=== PATIENT | male | born 1990 | race Caucasian/White ===

== ENCOUNTER → 2018-01-14 09:50 | Outpatient (POV) | payer BC, SELFPAY | PROVIDERS: PCP Nurse Practitioner Family; Visit Provider Nurse Practitioner Acute Care | DX: Z00.00 Encounter for general adult medical examination without abnormal findings (principal) ==

== ENCOUNTER → 2019-03-03 12:27 | Outpatient (CLI) | payer BC, SELFPAY ==
--- NOTE | 2019-03-03 12:42 | XR_ITS ---
XR chest 2V HISTORY: ITS.REASON: CHEST PAIN, SOA, CHRONIC COUGH ORDERING PHYSICIAN: Dorothy Ivy APRN PATIENT AGE: 28 years COMPARISON: PA and lateral chest 12/22/2018 FINDINGS: The cardiomediastinal silhouette and pulmonary vascularity are within normal limits. The lungs are clear without infiltrates, suspicious nodules, or pleural effusions. No acute bony abnormalities. IMPRESSION: Negative chest, no acute finding
== END ==
PROVIDERS: PCP Family Medicine; Visit Provider Nurse Practitioner Family
DX: R07.9 Chest pain, unspecified (principal); R06.02 Shortness of breath; R05 Cough
CPT/HCPCS: 71046

== ENCOUNTER → 2019-03-04 16:12 | Outpatient (CLI) | payer BC, SELFPAY ==
[2019-03-04 16:44] LABS: Basophils # 0.1 K/mm3 (0-0.2); Basophils % 0.7 % (0.1-2.0); Eosinophils # 0.7 K/mm3 (0.0-0.4); Eosinophils % 8.1 % (0.1-12.0); Hematocrit 47.5 % (42.0-52.0); Hemoglobin 16.6 g/dL (14.1-18.0); Lymphocytes # 2.3 K/mm3 (0.7-4.5); Lymphocytes % 29.1 % (10-50); Mean Corpuscular Hemoglobin 30.5 pg (27.0-31.2); Mean Platelet Volume 7.2 fl (7.4-10.4); Monocytes # 0.5 K/mm3 (0.1-1.0); Monocytes % 6.4 % (1.7-9.3); Neutrophils # 4.5 K/mm3 (1.8-7.8); Neutrophils % 55.7 % (37.0-80.0); Platelet Count 342 K/mm3 (142-424); Red Blood Count 5.46 M/mm3 (4.60-6.20); Red Cell Distribution Width 12.8 % (11.5-17.5)
[2019-03-04 18:49] LABS: Alanine Aminotransferase 29 U/L (12-78); Albumin Level 4.7 gm/dL (3.4-5.0); Albumin/Globulin Ratio 1.4 (1.1-1.8); Alkaline Phosphatase 94 U/L (46-116); Anion Gap 14.2 mEq/L (5-15); Aspartate Amino Transferase 17 U/L (15-37); Bilirubin,Total 0.9 mg/dL (0.2-1.0); Blood Urea Nitrogen 20 mg/dL (7-18); Calcium 10.2 mg/dL (8.5-10.1); Carbon Dioxide 29 mmol/L (21.0-32.0); Chloride 101 mmol/L (98-107); Chol/HDL Ratio 4.5 (1-3.5); Cholesterol 197 mg/dL (140-200); Creatinine,Serum 1.12 mg/dL (0.70-1.30); Estimated Glomerular Filt Rate 79 ml/min (>60); GFR (African American) 96 ML/MIN (>60); Globulin 3.4 gm/dl (1.3-3.2); Glucose 80 mg/dL (74-106); HDL Cholesterol 44 mg/dL (27-67); LDL Cholesterol 138 mg/dL (0-130); Potassium 4.2 mmoL/L (3.5-5.1); Sodium 140 mmol/L (136-145); Thyroid Stimulating Hormone 1.84 uIU/ml (0.358-3.740); Total Protein,Serum 8.1 gm/dL (6.4-8.2); Triglycerides 76 mg/dL (30-200); VLDL Cholesterol 15 mg/dL (0-40)
[2019-03-04 18:53] LABS: C-Reactive Protein < 0.2 mg/L (0.0-0.9)
== END ==
PROVIDERS: Visit Provider Nurse Practitioner Family
DX: R07.9 Chest pain, unspecified (principal); R06.02 Shortness of breath; R05 Cough
CPT/HCPCS: 36415; 80053; 80061; 84443; 85025; 86140

== ENCOUNTER → 2019-03-13 09:47 | Outpatient (CLI) | payer BC, SELFPAY ==
[2019-03-13 10:45] VITALS: PULSE 84; PULSE 88
== END ==
PROVIDERS: PCP Family Medicine; Visit Provider Nurse Practitioner Family
DX: R06.02 Shortness of breath (principal)
CPT/HCPCS: 94060; 94640

== ENCOUNTER 2020-04-16 18:59 | Emergency (ER) | payer BC, SELFPAY ==
[2020-04-16 19:15] VITALS: BP 141/88; PULSE 83; RESP 20; TEMP 36.6; O2SAT 98; BMI 25.1
--- NOTE | 2020-04-16 19:30 | PC.NURSE ---
PATIENT SENT TO ER PER LUDY THORNTON APRN FOR FURTHER EVALUATION OF ABDOMINAL PAIN. REPORT GIVEN TO SYL ELMORE
[2020-04-16 19:36] VITALS: BP 130/95; PULSE 76; RESP 16; O2SAT 98; BMI 25.1
--- NOTE | 2020-04-16 19:44 | CT_ITS ---
PROCEDURE: CT ABDOMEN PELVIS WO CON CLINICAL INDICATION: epigatric pain Epigastric pain with vomiting COMPARISON: No exams were available for comparison TECHNIQUE: Axial images obtained with sagittal and coronal reformats. All CT scans at the facility use one or more dose reduction, viz: automated exposure control, ma/kV adjustment per patient size (including targeted exams where dose is matched to indication, i.e. head), or iterative reconstruction technique. FINDINGS: LOWER THORAX: No acute finding ABDOMEN & PELVIS: The liver, spleen, adrenal glands, pancreas, and kidneys have an unremarkable appearance. No intestinal obstruction or free air. No evidence of appendicitis. There is scattered diverticula but no evidence of diverticulitis. There are scattered mildly prominent mesenteric lymph nodes with some minimal stranding of the mesenteric fat. No acute bony anomalies. There is a tiny umbilical hernia containing fat IMPRESSION: 1. Mildly prominent mesenteric lymph nodes with mild stranding of the mesenteric fat suggesting mesenteric adenitis 2. Otherwise negative CT abdomen pelvis without contrast Dictated by: Junito Hdez MD 04/16/2020 23:30 Electronically signed by Junito Hdez MD in [place] 04/16/2020 23:30
[2020-04-16 20:03] LABS: Basophils % 0.3 % (0.1-2.0); Eosinophils # 0.6 K/mm3 (0.0-0.4); Eosinophils % 6.2 % (0.1-12.0); Hematocrit 49.1 % (42.0-52.0); Hemoglobin 17.1 g/dL (14.1-18.0); Lymphocytes # 2.1 K/mm3 (0.7-4.5); Lymphocytes % 23.2 % (10-50); Mean Corpuscular HGB Conc 34.8 g/dL (31.8-35.4); Mean Corpuscular Volume 89.1 fl (80-94); Mean Platelet Volume 7.4 fl (7.4-10.4); Monocytes # 0.6 K/mm3 (0.1-1.0); Monocytes % 6.8 % (1.7-9.3); Neutrophils # 5.6 K/mm3 (1.8-7.8); Neutrophils % 63.5 % (37.0-80.0); Platelet Count 342 K/mm3 (142-424); Red Blood Count 5.52 M/mm3 (4.60-6.20); Red Cell Distribution Width 13.5 % (11.5-17.5); White Blood Count 8.9 K/mm3 (4.8-10.8)
[2020-04-16 20:04] LABS: Chloride 104 mmol/L (98-107)
[2020-04-16 20:05] LABS: Potassium 3.5 mmoL/L (3.5-5.1); Sodium 143 mmol/L (136-145)
[2020-04-16 20:07] LABS: Amylase 102 U/L (30-110); Blood Urea Nitrogen 15 mg/dl (9-20); Creatinine Clearance Estimated 104 mL/min (50-200); Estimated Glomerular Filt Rate 73 ml/min (>60); GFR (African American) 88 ML/MIN (>60)
[2020-04-16 20:08] LABS: Alanine Aminotransferase 52 U/L (12-78); Albumin Level 4.7 g/dl (3.5-5.0); Albumin/Globulin Ratio 1.4 (1.1-1.8); Alkaline Phosphatase 95 U/L (38-126); Anion Gap 14.5 mEq/L (5-15); Aspartate Amino Transferase 38 U/L (17-59); Calcium 9.7 mg/dl (8.4-10.2); Carbon Dioxide 28 mmol/L (22.0-30.0); Globulin 3.4 g/dL (1.3-3.2); Glucose 111 mg/dl (74-100); Lipase 354 U/L (23-300); Total Protein,Serum 8.1 g/dl (6.3-8.2)
[2020-04-16 20:13] LABS: C-Reactive Protein 3.2 mg/L (0-4)
[2020-04-16 20:38] LABS: Erythrocyte Sedimentation Rate 8 mm/hr (0-15)
--- NOTE | 2020-04-16 20:56 | HMH.EDNVD ---
ED Disposition Clinical Impression: Acute mesenteric adenitis Acute bronchitis Qualifiers: Bronchitis organism: unspecified organism Qualified Code(s): J20.9 - Acute bronchitis, unspecified Disposition: Home, Self-Care Condition on Discharge: Good Instructions: DI for Mesenteric Adenitis-Adult Additional Instructions: use meds and fluids and see pcp for follow up Prescriptions: Azithromycin [Zithromax 250mg tab] 250 mg PO DIRECTED #6 tab Transmission Status: Pending to [id number] ondansetron HCL [Zofran 4mg Tab] 4 mg PO TID #15 tab Transmission Status: Pending to [id number] Referrals: Scott Bhat MD [Primary Care Provider] - - Critical Care Critical Care Time: No Attestation: On 04/16/20, the high probability of a clinically significant, sudden or life threatening deterioration of the following system(s) required my full and direct attention, intervention and personal management. The time I documented below is in addition to time spent performing reported procedures but includes the following listed in this critical care notation. Medical Decision Making - Medical Records Medical records reviewed: Yes: I reviewed the patient's medical records. - Jovi Inquiry Pt receiving controlled substance: No Vital Signs: 04/16/20 19:15 04/16/20 19:36 Temperature 97.9 F Temperature Source Oral Pulse Rate [Left Brachial] 83 76 Respiratory Rate 20 16 Blood Pressure [Right Arm] 141/88 H 130/95 H Blood Pressure Mean [Right Arm] 105 106 Blood Pressure Source [Right Arm] Automatic Cuff Automatic Cuff Blood Pressure Position [Right Arm] Sitting Sitting 02 Sat by Pulse Oximetry 98 98 Oxygen Delivery Method Room Air Room Air - Lab Data Lab results reviewed: Yes: I reviewed the patient's lab results. Lab Results 04/16/20 19:45: WBC 8.9, RBC 5.52, Hgb 17.1, Hct 49.1, MCV 89.1, MCH 31.0, MCHC 34.8, RDW 13.5, Plt Count 342, MPV 7.4, Neut % (Auto) 63.5, Lymph % (Auto) 23.2, [place] % (Auto) 6.8, Eos % (Auto) 6.2, Baso % (Auto) 0.3, Neut # (Auto) 5.6, Lymph # (Auto) 2.1, [place] # (Auto) 0.6, Eos # (Auto) 0.6 H, Baso # (Auto) 0.0, ESR 8 04/16/20 19:45: Sodium 143, Potassium 3.5, Chloride 104, Carbon Dioxide 28, Anion Gap 14.5, BUN 15, Creatinine 1.20, Estimated Creat Clear 104, Estimated GFR 73, Est GFR ( Amer) 88, Glucose 111 H, Calcium 9.7, Total Bilirubin 1.0, AST 38, ALT 52, Alkaline Phosphatase 95, C-Reactive Protein 3.2, Total Protein 8.1, Albumin 4.7, Globulin 3.4 H, Albumin/Globulin Ratio 1.4, Amylase 102, Lipase 354 H 04/16/20 19:45: SARS-CoV-2 IgG Ab (Rapid) Negative, SARS-CoV-2 IgM Ab (Rapid) Negative Result diagrams: 04/16/20 19:45 04/16/20 19:45 Orders (Tests/Meds): ED MEDICATIONS Generic Name Dose Route Start Last Admin Trade Name Freq PRN Reason Stop Dose Admin Sodium Chloride 1,000 mls @ 999 mls/hr 04/16/20 19:45 04/16/20 20:00 Sod Chlor 0.9% 1000ml Bag IV 04/16/20 20:45 999 mls/hr .Q1H1M RAVEN Administration Sodium Chloride 8 ml 04/16/20 19:44 Sodium Chloride 0.9% 10ml Vial IV 05/16/20 19:43 NEEDED PRN dilute pepcid Discontinued Medications Generic Name Dose Route Start Last Admin Trade Name Freq PRN Reason Stop Dose Admin Famotidine 20 mg 04/16/20 19:44 04/16/20 19:59 Pepcid 20mg/2ml Vial IV 04/16/20 19:45 20 mg ONCE ONE Administration Ketorolac Tromethamine 30 mg 04/16/20 19:44 04/16/20 19:59 Toradol 30mg/Ml Vial IV 04/16/20 19:45 30 mg ONCE ONE Administration Metoclopramide HCl 10 mg 04/16/20 19:44 04/16/20 19:59 Reglan 10mg/2ml Vial IVP 04/16/20 19:45 10 mg ONCE ONE Administration Ondansetron HCl 4 mg 04/16/20 19:44 04/16/20 20:00 Zofran 4mg/2ml Vial IV 04/16/20 19:45 4 mg ONCE ONE Administration ORDERS Category Date Time Status CT abdomen pelvis wo con Stat Cat Scan 04/16/20 19:44 Taken CXR 2 view (NOT portable) [XR chest 2V] Stat Exams 04/16/20 21:01 Taken U
--- NOTE | 2020-04-16 21:01 | XR_ITS ---
PROCEDURE: XR CHEST 2V CLINICAL HISTORY: cough COMPARISON: CXR2V XR chest 2V from 09/01/2018 CXR2V XR chest 2V from 12/22/2018 Chest from 05/20/2019 FINDINGS: The cardiomediastinal silhouette and pulmonary vascularity are within normal limits. The lungs are clear without infiltrates, suspicious nodules, or pleural effusions. No acute bony abnormalities. IMPRESSION: No acute findings. Dictated by: Junito Hdez MD 04/16/2020 22:33 Electronically signed by Junito dHez MD in [place] 04/16/2020 22:33
[2020-04-16 21:25] LABS: Coronavirus 19 IgG Antibody Negative (Negative); Coronavirus 19 IgM Antibody Negative (Negative)
[2020-04-16 22:17] VITALS: BP 123/75; PULSE 63; RESP 16; TEMP 36.7; O2SAT 98
== END 2020-04-16 22:19 | disposition home or self-care (01) ==
LOC: UTC 19:08 → ER 19:31
PROVIDERS: Emergency Provider Emergency Medicine; PCP Family Medicine
DX: I88.0 Nonspecific mesenteric lymphadenitis (principal); J20.9 Acute bronchitis, unspecified; F17.210 Nicotine dependence, cigarettes, uncomplicated; Z90.09 Acquired absence of other part of head and neck
CPT/HCPCS: 71046; 74176; 80053; 82150; 83690; 85025; 85651; 86140; 86328; 96365; 96375; 99282; J2405

== ENCOUNTER → 2021-08-08 20:57 | Outpatient (CLI) | payer SELFPAY ==
[2021-08-08 21:02] LABS: Adenovirus,PCR Not Detected (NotDetected); Bordetella Pertussis Not Detected (NotDetected); Chlamydophila Pneumoniae, PCR Not Detected (NotDetected); Coronavirus 19, PCR Not Detected (NotDetected); Coronavirus 229E Not Detected (NotDetected); Coronavirus NL63 Not Detected (NotDetected); Coronavirus OC43 Not Detected (NotDetected); Coronovirus HKU1,PCR Not Detected (NotDetected); Human Metapneumovirus Not Detected (NotDetected); Influenza A, PCR Not Detected (NotDetected); Influenza AH1, 2009 Not Detected (NotDetected); Influenza AH1, PCR Not Detected (NotDetected); Influenza AH3,PCR Not Detected (NotDetected); Influenza B, PCR Not Detected (NotDetected); Mycoplasma Pneumoniae, PCR Not Detected (NotDetected); Parainfluenza 1, PCR Not Detected (NotDetected); Parainfluenza 2, PCR Not Detected (NotDetected); Parainfluenza 3, PCR Not Detected (NotDetected); Parainfluenza 4, PCR Not Detected (NotDetected); Rhinovirus/Enterovirus Not Detected (NotDetected)
[2021-08-09 00:30] LABS: Respiratory Syncytial Virus Detected (NotDetected)
== END ==
PROVIDERS: Visit Provider Nurse Practitioner Family
DX: Z20.822 Contact with and (suspected) exposure to COVID-19 (principal); J02.9 Acute pharyngitis, unspecified; B97.4 Respiratory syncytial virus as the cause of diseases classified elsewhere
CPT/HCPCS: 87581; 87632; 87798; C9803; U0003; U0005

== ENCOUNTER → 2021-11-22 11:56 | Outpatient (CLI) | payer BC, SELFPAY | PROVIDERS: PCP Family Medicine; Visit Provider Nurse Practitioner Family | DX: G47.30 Sleep apnea, unspecified (principal); R40.0 Somnolence | CPT/HCPCS: G0399 ==

== ENCOUNTER 2022-07-12 19:34 | Emergency (ER) | payer SELFPAY ==
[2022-07-12 19:45] VITALS: BP 149/96; PULSE 88; RESP 16; TEMP 37.1; O2SAT 99; BMI 22.8
--- NOTE | 2022-07-12 20:13 | PC.NURSE ---
Pt is now complaining of a headache. States it came on roughly 3 minutes ago. notified. 30mg IV toradol given. Pt refused IV benadryl due to having to drive home with his 3 small children. Pt states that he does not have anyone available to drive him home with his children. Staff offered to find him transportation, however, pt continues to refuse citing that he would have to walk back to the hospital to get his vehicle and either make his small children walk with him or leave them home alone.
[2022-07-12 20:57] VITALS: BP 111/79; PULSE 73; RESP 19; TEMP 36.9; O2SAT 97
--- NOTE | 2022-07-12 21:04 | HMH.EDALLER ---
Discharge Plan Disposition Patient Disposition: Home, Self-Care Prescriptions Prescriptions: New prednisone [prednisone] 20 mg tablet 20 mg PO BID Qty: 10 0RF Referrals Follow up/Referrals: Dorothy Ivy APRN [Primary Care Provider] - See instructions Clinical Impressions Clinical Impression: Bee sting reaction Instructions Patient Instructions: DI for Insect Bites and Stings Discharge ED Provider: Logan Burrows Allergic React/Insect Bite HPI General Chief complaint: Allergic Reaction Stated complaint: reaction to bee sting Time Seen by Provider: 07/12/22 21:04 Mode of Arrival - ED Triage: Ambulatory Source of Information: Patient and Medical Record Limitations: No Limitations History of Present Illness HPI narrative: reaction to bee sting tonight eith hx of sev reaction MD complaint: allergic reaction Onset (ago): hour(s) Exposure: insect bite Treatment prior to arrival: none Allergies Allergy/AdvReac Type Severity Reaction Status Date / Time bee venom protein (honey bee) Allergy Severe Anaphylaxis Verified 07/12/22 20:24 Previous Allergic Reaction History: anaphylaxis Severity: moderate Related Data Previous Rx's Medication Instructions Recorded prednisone 20 mg tablet 20 mg PO BID #10 tabs 07/12/22 PFSH PFSH Medical History (Updated 07/12/22 @ 21:08 by Logan Burrows MD) 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 Surgical History (Updated 07/12/22 @ 20:22 by Shona Hennessy RN) Hx of tonsillectomy Social History (Updated 07/12/22 @ 20:06 by Shona Hennessy RN) Smoking Status: Never smoker alcohol intake: never substance use type: opiates current occupational status: other Travel in the last 8 weeks: None household members: family housing: house caffeine: Yes ROS Obtained: Yes All systems reviewed & no additional complaints except as documented Physical Exam General General appearance: alert Head Head exam: normocephalic Eye Eye exam: Present PERRL and EOMI ENT ENT exam: Present normal oropharynx Neck Neck exam: Present trachea midline Respiratory Respiratory exam: Absent respiratory distress Cardiovascular Cardiovascular exam: Present regular rate Abdominal Exam Abdominal exam: Present soft Extremities Exam Extremities exam: Present full ROM Neurological Exam Neurological exam: Present alert and CN II-XII intact Psychiatric Psychiatric exam: Present normal affect Skin Skin exam: Present intact Medical Decision Making Medical Records Medical records reviewed: Yes I reviewed the patient's medical records. Jovi Inquiry Pt receiving controlled substance: No Vital Signs: 07/12/22 19:45 07/12/22 20:57 07/12/22 20:57 Temperature 98.7 F 98.5 F Temperature Source Oral Pulse Rate 73 Pulse Rate [Apical] 88 Respiratory Rate 16 19 Blood Pressure 111/79 Blood Pressure [Right Arm] 149/96 H Blood Pressure Mean [Right Arm] 113 Blood Pressure Source [Right Arm] Automatic Cuff Blood Pressure Position [Right Arm] Sitting 02 Sat by Pulse Oximetry 99 Oxygen Delivery Method Room Air Room Air Room Air Lab Data Lab results reviewed: Yes I reviewed the patient's lab results. Orders (Tests/Meds): ED MEDICATIONS Generic Name Dose Route Start Last Admin Trade Name Freq PRN Reason Stop Dose Admin Sodium Chloride 8 ml 07/12/22 20:06 Sodium Chloride 0.9% 10ml Vial IV 08/11/22 20:05 NEEDED PRN dilute pepcid Discontinued Medications Generic Name Dose Route Start Last Admin Trade Name Freq PRN Reason Stop Dose Admin Diphenhydramine HCl 25 mg 07/12/22 20:15 07/12/22 20:17 Diphenhydramine 50mg/Ml Vial IV 07/12/22 20:16 Not Given ONCE ONE Famotidine 20 mg 07/12/22 20:06 07/12/22 20:16 Famotidine 20mg/2ml Vial IV 07/12/22 20:07 20 mg ONCE ONE Administration Ketorolac Tromethamine 30 mg 07/12/22 20:13 07/12/22 20:17 Ketorolac 30mg/Ml Vial IV
== END 2022-07-12 21:12 | disposition home or self-care (01) ==
PROVIDERS: Emergency Provider Emergency Medicine; PCP Nurse Practitioner Family
DX: T63.441A Toxic effect of venom of bees, accidental (unintentional), initial encounter (principal)
CPT/HCPCS: 96374; 96375; 99284

== ENCOUNTER 2022-09-27 16:44 | Emergency (ER) | payer BC, SELFPAY ==
[2022-09-27 17:40] VITALS: PULSE 81; RESP 19; TEMP 36.5; O2SAT 98; BMI 26.5
--- NOTE | 2022-09-27 18:00 | XR_ITS ---
PROCEDURE INFORMATION: Exam: XR Cervical Spine Exam date and time: 09/27/2022 6:03 PM Age: 32 years old Clinical indication: Neck pain; Additional info: Pain, no injury, no surgeries. TECHNIQUE: Imaging protocol: Radiologic exam of the cervical spine. Views: 2 or 3 views. COMPARISON: FIELD SPEC/O MRI-C-SPINE W/O 08/29/2016 1:57 PM FINDINGS: Bones/joints: No acute fracture or significant subluxation. Abnormal kyphotic curvature suggests muscle spasm. Disc spaces are well preserved. No significant spondylosis. Slight dextroscoliotic curvature at the cervical-thoracic junction, and mild levo scoliotic curvature in the upper thoracic spine. Soft tissues: No acute findings in the soft tissues. No prevertebral swelling. Lungs: The visualized lung apices are unremarkable. IMPRESSION: 1. No acute fracture or listhesis. 2. Cervical muscle spasm. 3. Mild cervical-thoracic scoliotic curvature.
--- NOTE | 2022-09-27 18:00 | XR_ITS ---
PROCEDURE INFORMATION: Exam: XR Thoracic Spine Exam date and time: 09/27/2022 6:05 PM Age: 32 years old Clinical indication: Pain in thoracic spine; Additional info: Pain, no injury, no surgeries. TECHNIQUE: Imaging protocol: Radiologic exam of the thoracic spine. Views: 3 views. COMPARISON: [facility] CT thoracic spine wo con 03/02/2018 4:17 PM FINDINGS: Bones/joints: There is slight chronic levo scoliotic curvature in the upper thoracic spine, and roto dextroscoliotic curvature at the lower thoracic-upper lumbar spine. No acute fracture or listhesis, as visualized. Disc spaces are well preserved. No significant spondylosis. Soft tissues: No acute findings in the paraspinous soft tissues. IMPRESSION: 1. Mild chronic scoliotic curvature. 2. No acute fracture or listhesis.
--- NOTE | 2022-09-27 18:28 | EXP.UTC ---
Discharge Plan Disposition Patient Disposition: Home, Self-Care Condition: Good Prescriptions Prescriptions: New ibuprofen [IBU] 800 mg tablet 800 mg PO TIDP PRN (Reason: Moderate Pain) Qty: 20 0RF cyclobenzaprine 10 mg tablet 10 mg PO TID PRN (Reason: muscle spasm) Qty: 15 0RF No Action prednisone [prednisone] 20 mg tablet 20 mg PO BID Qty: 10 0RF Referrals Follow up/Referrals: Dorothy Ivy APRN [Primary Care Provider] - See instructions Activity Restrictions/Add. Instructions Additional Instructions/Restrictions: *Ibuprofen alva 8 hours with meal as needed for pain/inflammation *Not additional anti-inflammatory like motrin, aleve, advil with the above amount of ibuprofen. You can still take Tylenol every 4 hours as needed if you need something else for pain *Ice 20 minutes every 2 hours for the first 48 hours after the initial injury followed by moist heat every 20 minutes 3-4 times a day to affected area *Muscle relaxer every 8 hours as needed for muscle spasms but remember, it WILL cause drowsiness You cannot take it and drive, operate machinery or care for small children. *Keep this area active, no movement leads to more stiffness, However take it easy and avoid heavy lifting pushing or pulling *Follow up with you family doctor if no improvement for further treatment Return if needed Straight to ER if any life threatening symptoms Clinical Impressions Clinical Impression: Muscle spasm Stand Alone Forms Stand Alone Forms: Work/School Release Instructions Patient Instructions: DI for Muscle Spasm, Cyclobenzaprine Discharge ED Provider: Elda Vitale [facility] General Stated complaint: NO ACCIDENT BACK PAIN Mode of Arrival: Ambulatory Source of Information: Patient Limitations: No Limitations Time Seen by Provider: 09/27/22 18:28 Description of Symptoms (Recalled from Triage Doc. by RN): PATIENT C/O MID-BACK PAIN THAT RADIATES UP TO NECK. NO KNOWN INJURY. 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 he has been having pain in his mid back to his shoulders States that he hasnt fallen or done anything that he is aware of to hurt it but today he was painting over his head and it started hurting again and the pain shot from his mid back up into his neck area States that pain continued throughout the day so this evening he came in to get it checked out Related Data Previous Rx's Medication Instructions Recorded prednisone 20 mg tablet 20 mg PO BID #10 tabs 07/12/22 cyclobenzaprine 10 mg tablet 10 mg PO TID PRN muscle spasm #15 09/27/22 tabs ibuprofen 800 mg tablet (IBU) 800 mg PO TIDP PRN Moderate Pain 09/27/22 #20 tabs Allergies Allergy/AdvReac Type Severity Reaction Status Date / Time bee venom protein (honey bee) Allergy Severe Anaphylaxis Verified 07/12/22 20:24 Worker's Comp Is this a Worker's Comp case?: No [facility] Medical History (Updated 09/27/22 @ 18:58 by Elda Vitale APRN) Anxiety Bee sting-induced anaphylaxis History of heart attack Lazy eye of left side Surgical History (Updated 09/27/22 @ 17:59 by Enid Richards RN) History of tonsillectomy Hx of tonsillectomy Social History (Updated 09/27/22 @ 17:59 by Enid Richards RN) Smoking Status: Never smoker alcohol intake: never substance use type: opiates current occupational status: other Travel in the last 8 weeks: None household members: family housing: house caffeine: Yes ROS Obtained: Yes All systems reviewed & no additional complaints except as documented and Yes Systems reviewed as appropriate & no additional complaints exce
[2022-09-27 19:00] VITALS: BP 130/82; PULSE 81; RESP 19; TEMP 36.5; O2SAT 98
== END 2022-09-27 19:02 | disposition home or self-care (01) ==
PROVIDERS: Emergency Provider Nurse Practitioner; PCP Nurse Practitioner Family
DX: M54.6 Pain in thoracic spine (principal); M54.12 Radiculopathy, cervical region; M41.83 Other forms of scoliosis, cervicothoracic region; M62.838 Other muscle spasm; H53.009 Unspecified amblyopia, unspecified eye; F41.9 Anxiety disorder, unspecified; Z79.1 Long term (current) use of non-steroidal anti-inflammatories (NSAID); Z79.52 Long term (current) use of systemic steroids; Z79.899 Other long term (current) drug therapy; Z91.030 Bee allergy status
CPT/HCPCS: 72040; 72072; 96372; 99213; G0463

== ENCOUNTER → 2022-11-22 13:31 | Outpatient (CLI) | payer OTHER, SELFPAY ==
--- NOTE | 2022-11-22 13:36 | XR_ITS ---
FINAL REPORT CLINICAL HISTORY: LT SHOULDR PAIN FINDINGS: Left shoulder Three views were obtained. There is no acute fracture or dislocation. There is mild elevation of the distal clavicle, mild AC separation is not excluded. No soft tissue abnormality is identified. IMPRESSION: Possible mild AC separation. Reviewed, Interpreted and Dictated by Sravan Murray III, MD Transcribed by Marcie Rhodes Authenticated and . [facility]
== END ==
LOC: RAD 13:33
PROVIDERS: PCP Nurse Practitioner Family; Visit Provider Nurse Practitioner Family
DX: M25.512 Pain in left shoulder (principal)
CPT/HCPCS: 73030

== ENCOUNTER → 2023-06-07 23:25 | Outpatient (CLI) | payer OTHER, SELFPAY ==
[2023-06-07 18:23] LABS: Basophils % 0.2 % (0.1-2.0); Eosinophils # 0.4 K/mm3 (0.0-0.4); Eosinophils % 4.7 % (0.1-12.0); Hematocrit 51.2 % (42.0-52.0); Hemoglobin 16.6 g/dL (14.1-18.0); Mean Corpuscular HGB Conc 32.4 g/dL (31.8-35.4); Mean Corpuscular Hemoglobin 29.3 pg (27.0-31.2); Mean Corpuscular Volume 90.4 fl (80-94); Mean Platelet Volume 8.5 fl (7.4-10.4); Monocytes # 0.6 K/mm3 (0.1-1.0); Monocytes % 6.9 % (1.7-9.3); Neutrophils # 5.7 K/mm3 (1.8-7.8); Neutrophils % 65.2 % (37.0-80.0); Platelet Count 428 K/mm3 (142-424); Red Blood Count 5.66 M/mm3 (4.60-6.20); Red Cell Distribution Width 13.6 % (11.5-17.5); White Blood Count 8.8 K/mm3 (4.8-10.8)
[2023-06-07 18:25] LABS: Uric Acid 8.6 mg/dl (3.5-8.5)
== END ==
LOC: LAB.DROPOF 23:25
PROVIDERS: PCP Student in an Organized Health Care Education/Training Program; Visit Provider Student in an Organized Health Care Education/Training Program
DX: M25.561 Pain in right knee (principal); M25.461 Effusion, right knee
CPT/HCPCS: 84550; 85025

== ENCOUNTER → 2023-06-29 12:57 | Outpatient (CLI) | payer OTHER, SELFPAY ==
--- NOTE | 2023-06-29 12:59 | XR_ITS ---
FINAL REPORT CLINICAL HISTORY: Rt knee pain COMPARISON: None FINDINGS: Three views of the right knee reveal no evidence of fracture or dislocation. The bony alignment is normal. The joint spaces are preserved. There is no evidence of joint effusion. There is prepatellar soft tissue swelling. IMPRESSION: Soft tissue swelling without acute abnormality identified. Reviewed, Interpreted and Dictated by Sravan Murray III, MD Transcribed by Ashley Moreira Authenticated and [facility]
== END ==
LOC: RAD 12:57
PROVIDERS: PCP Family Medicine; Visit Provider Orthopaedic Surgery
DX: M25.561 Pain in right knee (principal)
CPT/HCPCS: 73562

== ENCOUNTER → 2023-07-05 07:56 | Outpatient (CLI) | payer OTHER, SELFPAY ==
--- NOTE | 2023-07-05 07:56 | MR_ITS ---
FINAL REPORT CLINICAL HISTORY: rt knee pain. swelling and popping in knee. weakness. pain around patella. FINDINGS: Multi planar MR imaging was performed of the right knee. The anterior and posterior cruciate ligaments are intact. The quadriceps and patellar tendons are intact. The medial and lateral menisci are intact without evidence of tear. The medial and lateral collateral ligaments appear intact. The medial and lateral retinacula appear intact. There is an abnormal fluid collection anterior to the patella measuring 3.3 x 1.0 cm. No underlying marrow edema is identified. Findings may be related to seroma or resolving hematoma. No evidence of soft tissue inflammatory reaction. IMPRESSION: Fluid collection anterior to the patella, may be related to seroma or resolving hematoma. Please correlate with history of trauma in this region. Reviewed, Interpreted and Dictated by Noah Casillas MD Transcribed by Marcie Rhodes Authenticated and [facility]
== END ==
LOC: RAD 07:56
PROVIDERS: PCP Family Medicine; Visit Provider Orthopaedic Surgery
DX: M25.561 Pain in right knee (principal)
CPT/HCPCS: 73721

== ENCOUNTER 2023-10-20 10:41 | Emergency (ER) | payer OTHER, SELFPAY ==
[2023-10-20 10:55] VITALS: BP 128/79; PULSE 77; RESP 18; TEMP 36.8; O2SAT 98; BMI 27.6
--- NOTE | 2023-10-20 11:27 | EXP.UTC ---
Discharge Plan Disposition Patient Disposition: Home, Self-Care Condition: Good Prescriptions Prescriptions: New famotidine [Pepcid AC] 20 mg tablet 20 mg PO BID Qty: 60 0RF No Action Zyrtec 10 mg Capsule 10 mg PO DAILY Referrals Follow up/Referrals: Dorothy Ivy APRN [Primary Care Provider] - See instructions Clinical Impressions Clinical Impression: Epigastric discomfort Instructions Patient Instructions: DI for Epigastric Pain Discharge ED Provider: Frieda Navarrete [facility] General Stated complaint: lower stomach pain Mode of Arrival: Ambulatory Source of Information: Patient Limitations: No Limitations Time Seen by Provider: 10/20/23 11:26 Description of Symptoms (Recalled from Triage Doc. by RN): PATIENT C/O UPPER ABDOMINAL PAIN THAT STARTED YESTERDAY. HE ALSO STATES HE FEELS BLOATED AND FULL AFTER TAKING A DRINK OR A BITE OF FOOD HEENT Symptoms (Recalled from RN notes): No Resp Symptoms (Recalled from RN notes): No Skin Symptoms (Recalled from RN notes): No MS Symptoms (Recalled from RN notes): No Functional Status (Recalled from RN notes): WNL History of Present Illness Provider Complaint: Pt relates that he has had epigastric pain with eating and would feel immediately full with a bite of food or a drink of water. He denies diarrhea or constipation. Related Data Home Medications Medication Instructions Recorded Confirmed cetirizine 10 mg capsule (Zyrtec) 10 mg PO DAILY 10/20/23 10/20/23 Previous Rx's Medication Instructions Recorded famotidine 20 mg tablet (Pepcid AC) 20 mg PO BID #60 tabs 10/20/23 Allergies Allergy/AdvReac Type Severity Reaction Status Date / Time bee venom protein (honey bee) Allergy Severe Anaphylaxis Verified 07/18/23 09:26 Worker's Comp Is this a Worker's Comp case?: No [facility] Disclaimer: The information contained in this section may have been updated after the patient was seen, as this information can be updated by other users. Medical History (Updated 10/20/23 @ 12:26 by Frieda Navarrete APRN) Anxiety Asthma Bee sting-induced anaphylaxis History of heart attack Lazy eye of left side Surgical History History of tonsillectomy Social History (Reviewed 07/18/23 @ 09:26 by LAMONT Domínguez Smoking Status: Never smoker alcohol intake: never substance use type: opiates current occupational status: other Travel in the last 8 weeks: None household members: family housing: house caffeine: Yes ROS Obtained: Yes All systems reviewed & no additional complaints except as documented Constitutional Constitutional: Reports system reviewed and no additional complaints, except as documented and Reports poor appetite Eyes Eyes: Reports system reviewed and no additional complaints, except as documented ENT Ears, Nose, Mouth, and Throat: Reports system reviewed and no additional complaints, except as documented Cardiovascular Cardiovascular: Reports system reviewed and no additional complaints, except as documented Respiratory Respiratory: Reports system reviewed and no additional complaints, except as documented Gastrointestinal Gastrointestingal: Reports system reviewed and no additional complaints, except as documented Genitourinary Male Genitourinary: Reports system reviewed and no additional complaints, except as documented Musculoskeletal Musculoskeletal: Reports system reviewed and no additional complaints, except as documented Integumentary/Breasts Skin/Breast: Reports system reviewed and no additional complaints, except as documented Neurologic Neurologic: Reports system reviewed and no additional complaints, except as documented Endocrine Endocrine: Reports system reviewed and no additional complaints, except as documented Hematologic/Lymphatic Henatologic/Lymphatic: Reports system reviewed and no additional complaints, except as documented Allergic/Imm
--- NOTE | 2023-10-20 11:33 | XR_ITS ---
PROCEDURE INFORMATION: Exam: XR Complete Acute Abdomen Series Including Chest Exam date and time: 10/20/2023 11:36 AM Age: 33 years old Clinical indication: Abdominal pain TECHNIQUE: Imaging protocol: Radiologic exam. Complete acute abdomen series, including 2 or more views of the abdomen and a single view chest. COMPARISON: CR XR CHEST 2V 04/16/2020 9:07 PM FINDINGS: Lungs: Normal. No consolidation. Pleural spaces: Normal. No pleural effusions. No pneumothorax. Heart/Mediastinum: Normal. No cardiomegaly. Gastrointestinal tract: Normal. No bowel dilation. Intraperitoneal space: Normal. No free air. Bones/joints: Normal. No acute fracture. Soft tissues: Normal. IMPRESSION: No acute findings.
[2023-10-20 12:25] VITALS: BP 128/79; PULSE 77; RESP 18; TEMP 36.8; O2SAT 98
== END 2023-10-20 12:28 | disposition home or self-care (01) ==
PROVIDERS: Emergency Provider Nurse Practitioner Family; PCP Nurse Practitioner Family
DX: R10.13 Epigastric pain (principal); J45.909 Unspecified asthma, uncomplicated
CPT/HCPCS: 74021; 99212; 99214; G0463

== ENCOUNTER 2023-12-04 21:13 | Outpatient (CLI) | payer OTHER, SELFPAY ==
[2023-12-04 18:30] LABS: Adenovirus,PCR Not Detected (NotDetected); Coronavirus 19, PCR Not Detected (NotDetected); Coronavirus 229E Not Detected (NotDetected); Coronavirus NL63 Not Detected (NotDetected); Coronavirus OC43 Not Detected (NotDetected); Coronovirus HKU1,PCR Not Detected (NotDetected); Human Metapneumovirus Not Detected (NotDetected); Influenza A, PCR Not Detected (NotDetected); Influenza AH1, 2009 Not Detected (NotDetected); Influenza AH1, PCR Not Detected (NotDetected); Influenza AH3,PCR Not Detected (NotDetected); Influenza B, PCR Not Detected (NotDetected); Parainfluenza 1, PCR Not Detected (NotDetected); Parainfluenza 2, PCR Not Detected (NotDetected); Parainfluenza 3, PCR Not Detected (NotDetected); Parainfluenza 4, PCR Not Detected (NotDetected); Respiratory Syncytial Virus Not Detected (NotDetected); Rhinovirus/Enterovirus Not Detected (NotDetected)
== END 2023-12-04 23:59 ==
LOC: LAB.DROPOF 21:13
PROVIDERS: PCP Student in an Organized Health Care Education/Training Program; Visit Provider Student in an Organized Health Care Education/Training Program
DX: J20.9 Acute bronchitis, unspecified (principal); R05.8 Other specified cough; R51.9 Headache, unspecified; R06.02 Shortness of breath; J34.89 Other specified disorders of nose and nasal sinuses
CPT/HCPCS: 87632; 87635

== ENCOUNTER 2023-12-14 20:03 | Emergency (ER) | payer OTHER, SELFPAY ==
[2023-12-14 20:12] VITALS: BP 143/93; PULSE 52; RESP 20; TEMP 36.9; O2SAT 97; BMI 26.4
--- NOTE | 2023-12-14 20:15 | XR_ITS ---
PROCEDURE INFORMATION: Exam: XR Right Knee Exam date and time: 12/14/2023 8:26 PM Age: 33 years old Clinical indication: Swelling, leg or foot; Additional info: Right knee swelling, swelling around knee cap TECHNIQUE: Imaging protocol: Radiologic exam of the right knee. Views: 3 views. COMPARISON: MR KNEE RT WO CON 07/05/2023 7:56 AM FINDINGS: Bones/joints: No acute fracture or malalignment. Soft tissues: Prepatellar soft tissue prominence. IMPRESSION: Prepatellar soft tissue prominence which may represent bursitis. No acute osseous findings.
--- NOTE | 2023-12-14 20:32 | HMH.EDGENADL ---
Discharge Plan Disposition Patient Disposition: Home, Self-Care Prescriptions Prescriptions: New prednisone 20 mg tablet 40 mg PO DAILY 5 Days Qty: 10 0RF No Action prednisone 20 mg tablet 20 mg PO BID 5 Days Qty: 10 0RF benzonatate 100 mg capsule 100 mg PO BID PRN (Reason: cough) Qty: 20 0RF albuterol sulfate 90 mcg/actuation HFA aerosol inhaler 1 inh inhalation QID PRN (Reason: shortness of breath or wheezing) Qty: 6.7 0RF Zyrtec 10 mg Capsule 10 mg PO DAILY famotidine [Pepcid AC] 20 mg tablet 20 mg PO BID Qty: 60 0RF Referrals Follow up/Referrals: Jacqueline Link MD [Primary Care Provider] - See instructions Activity Restrictions/Add. Instructions Additional Instructions/Restrictions: Call your family doctor to establish care for this visit to the emergency department and schedule follow-up within 48 hours to ensure improvement. If you have any worsening of your condition or any other concerning signs or symptoms, return to the emergency department or your primary care doctor for further evaluation. Redness and swelling should get better after 2 to 3 days. If it continues to get worse, or you have fevers, chills, or any other concerns, return to the emergency department. Take Tylenol 1000 mg every 6 hours (4 times daily) and ibuprofen 400 mg every 6 hours (4 times daily) as needed with food and water to prevent GI upset and kidney damage. Clinical Impressions Clinical Impression: Septic prepatellar bursitis Discharge ED Provider: Kobe Recinos General Adult HPI General Chief complaint: PAIN Stated complaint: right knee swelling pain hot to touch Time Seen by Provider: 12/14/23 20:10 Mode of Arrival: Ambulatory Source of Information: Patient Limitations: No Limitations Description of Symptoms (Recalled from ER Triage Doc. by RN): Pt ambulatory to ED with c/o right knee swelling, warmth, and redness beginning today while at work. Pt states he had fluid on his right knee approx 6-7 months ago and had an MRI done which was negative. Pt took ibuprofen before arrival. History of Present Illness HPI narrative: 33-year-old history of prepatellar bursitis of the right knee presenting with knee swelling. Patient has been previously seen by orthopedics for prepatellar bursitis. No intervention is needed. He was given steroids and NSAIDs and it relieved itself. Has never needed arthrocentesis. Patient states that tenderness started yesterday, redness and significant tenderness started today while at work. 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 Denies fevers or chills, nausea or vomiting. Patient is severe, made worse with application of pressure. Able to bear weight without issue. Related Data Home Medications Medication Instructions Recorded Confirmed cetirizine 10 mg capsule (Zyrtec) 10 mg PO DAILY 10/20/23 12/04/23 Previous Rx's Medication Instructions Recorded famotidine 20 mg tablet (Pepcid AC) 20 mg PO BID #60 tabs 10/20/23 benzonatate 100 mg capsule 100 mg PO BID PRN cough #20 caps 12/04/23 prednisone 20 mg tablet 20 mg PO BID 5 days #10 tabs 12/04/23 albuterol sulfate 90 mcg/actuation 1 inh inhalation QID PRN shortness 12/06/23 aerosol inhaler of breath or wheezing #6.7 grams prednisone 20 mg tablet 40 mg PO DAILY 5 days #10 tabs 12/14/23 Allergies Allergy/AdvReac Type Severity Reaction Status Date / Time bee venom protein (honey bee) Allergy Severe Anaphylaxis Verified 12/04/23 10:53 [facility] Disclaimer: The information contained in this section may have been updated after the patient was seen, as this information can be updated by other users. 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 History of heart attack Lazy eye of left side Surgical History History of tonsillectomy Social History Smoking Status: Never smoker alcohol intake: never substance use type: opiates current occupational status: other Travel in the last 8 weeks: None household members: family housing: house caffeine: Yes ROS Obtained: Yes All systems reviewed & no additional complaints except as documented Physical Exam General General appearance: alert and in no apparent distress Head Head exam: atraumatic and normocephalic Eye Eye exam: Present normal appearance, PERRL and EOMI ENT ENT exam: Present mucous membranes moist Neck Neck exam: Present normal inspection, full ROM and trachea midline Respiratory Respiratory exam: Absent respiratory distress, wheezes, stridor, accessory muscle use or prolonged expiratory phase Cardiovascular Cardiovascular exam: Present normal rhythm Abdominal Exam Abdominal exam: Present soft; Absent distention, tenderness, guarding, rebound or rigidity Extremities Exam Extremities exam: Present other (prepatellar swelling. Tenderness, warmth. No evidence of joint space tenderness. Range of motion intact. Patient able to bear weight.); Absent edema Neurological Exam Neurological exam: Present alert, oriented X3, CN II-XII intact and normal gait; Absent motor sensory deficit Skin Skin exam: Present warm and dry; Absent diaphoresis or erythema Medical Decision Making Medical Records Medical records reviewed: Yes I reviewed the patient's medical records. Jovi Inquiry Pt receiving controlled substance: No Jovi was queried for this patient: No Vital Signs: 12/14/23 20:12 Temperature 98.5 F Temperature Source Oral Pulse Rate [Left Radial] 52 L Respiratory Rate 20 Blood Pressure [Right Arm] 143/93 H Blood Pressure Mean [Right Arm] 109 Blood Pressure Source [Right Arm] Automatic Cuff Blood Pressure Position [Right Arm] Sitting 02 Sat by Pulse Oximetry 97 Oxygen Delivery Method Room Air Lab Data Lab Results 12/14/23 20:59: WBC 14.4 H, RBC 5.30, Hgb 16.5, Hct 47.8, MCV 90.2, MCH 31.1, MCHC 34.5, RDW 13.8, Plt Count 350, MPV 7.8, Neut % (Auto) 74.9, Lymph % (Auto) 16.1, [place] % (Auto) 5.4, Eos % (Auto) 3.0, Baso % (Auto) 0.5, Neut # (Auto) 10.8 H, Lymph # (Auto) 2.3, [place] # (Auto) 0.8, Eos # (Auto) 0.4, Baso # (Auto) 0.1, ESR 8, Sodium 137, Potassium 3.4 L, Chloride 103, Carbon Dioxide 27, Anion Gap 10.4, BUN 21 H, Creatinine 1.20, Estimated Creat Clear 109, Estimated GFR 71, Est GFR ( Amer) 85, Glucose 104 H, Lactate 1.3, Calcium 9.4, Total Bilirubin 0.8, AST 36, ALT 63, Alkaline Phosphatase 77, C-Reactive Protein 8.3 H, Total Protein 7.6, Albumin 4.4, Globulin 3.2, Albumin/Globulin Ratio 1.4 12/14/23 20:59 12/14/23 20:59 Orders (Tests/Meds): ED MEDICATIONS Generic Name Dose Route Start Last Admin Trade Name Milli PRN Reason Stop Dose Admin Dalbavancin 1,500 mg/ Dextrose 250 mls @ 500 mls/hr 12/14/23 23:39 IV 12/14/23 23:40 ONCE ONE Discontinued Medications Generic Name Dose Route Start Last Admin Trade Name Milli PRN Reason Stop Dose Admin Dexamethasone 10 mg 12/14/23 21:26 12/14/23 21:44 Dexamethasone 4mg Tablet PO 12/14/23 21:27 10 mg ONCE ONE Administration Ketorolac Tromethamine 30 mg 12/14/23 21:26 12/14/23 21:44 Ketorolac 30mg/Ml Vial IM 12/14/23 21:27 30 mg ONCE ONE Administration ORDERS Category Date Time Status Knee XR right 3 views [XR knee RT 3V] Stat Exams 12/14/23 20:15 Completed POCUS Point of Care (ER Only) Stat Exams 12/14/23 20:31 Completed CBC w/Auto Diff [Complete Blood Count Auto Diff] Stat Lab 12/14/23 20:59 Completed CMP [Comprehensive Metabolic Panel] Stat Lab 12/14/23 20:59 Completed CRP [C-Reactive Protein] Stat Lab 12/14/23 20:59 Completed ESR [Erythrocyte Sedimentation Rate] Stat Lab 12/14/23 20:59 Completed Lactic Acid Stat Lab 12/14/23 20:59 Completed Medical Decision Narrative: 33-year-old history of prepatellar bursitis of the right knee presenting with knee swelling. Patient has been previously seen by orthopedics for prepatellar bursitis. No intervention is needed. He was given steroids and NSAIDs and it relieved itself. Has never needed arthrocentesis. Patient states that tenderness started yesterday, redness and significant tenderness started today while at work. 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 Denies fevers or chills, nausea or vomiting. Patient is severe, made worse with application of pressure. Able to bear weight without issue. History was obtained via conversation with patient as well as chart review. On arrival, patient hemodynamically stable, alert, oriented x4, appropriate, GCS 15, moving all extremities spontaneously, pupils equal and reactive to light. Full physical exam performed and significant for red, tender right knee. Prepatellar bursitis. Range of motion intact and nonfocal. Neurovascularly intact. Differential includes inflammatory bursitis, septic bursitis, septic joint, among others. Patient was given Toradol IM, Decadron IM for symptomatic management and correction of underlying abnormalities. Workup independently interpreted and significant for leukocytosis 14, CRP elevated at 8. ESR negative. Lactate negative. X-ray right knee with soft tissue swelling, no evidence of bony involvement. [id number] ultrasound with prepatellar bursitis and no evidence of joint involvement. Echogenic material within bursa concerning for possible infectious material. See radiology read for full review of final results. Because we do not have the ability to run fluid test here [facility], orthopedics at was contacted. Recommended no transfer and no surgical evaluation, but antibiotics to cover gram-positive species. Patient was given 1500 mg Dalvance. Given patient presentation, workup, history, this most likely represents septic versus inflammatory bursitis right knee. Because patient at baseline without signs or symptoms of clinical decompensation, deemed appropriate for discharge. Results were relayed to patient who voiced understanding and were agreeable to outpatient management and follow up. At the time of discharge the patient was hemodynamically stable, tolerating PO, and mobilizing appropriately. Procedures Limited Ultrasound Indication:: Limited soft tissue ultrasound Indication: Swelling, tenderness, redness Identified structures: Location: Right knee Findings: Prepatellar bursitis with echogenic material. No evidence of cellulitis Impression: Prepatellar bursitis with echogenic material concerning for possible septic bursitis Images were saved to permanent archive The study was technically adequate Soft Tissue CPT Codes: CPT Neck: 24990-63 CPT Upper extremity: 27588-58 CPT Axilla: 70523-41 CPT Chest wall: 64878-07 CPT Breast: 09222-49-BA/LT (complete), 28581-50-KN/LT (limited), CPT Upper Back: 05242-28 CPT Lower Back: 74246-67 CPT Abdominal Wall: 28842-55 CPT Pelvic Wall: 76902-39 CPT Lower Extremity: 59489-99 CPT Other Soft Tissue: 83200-88 This study was performed by me, and I personally interpreted all images/videos. Based on my clinical judgement, these images were adequate and did not necessitate further imaging. Critical Care Critical Care Time Critical Care Time: No
[2023-12-14 21:20] LABS: Basophils # 0.1 K/mm3 (0-0.2); Basophils % 0.5 % (0.1-2.0); Eosinophils # 0.4 K/mm3 (0.0-0.4); Hematocrit 47.8 % (42.0-52.0); Hemoglobin 16.5 g/dL (14.1-18.0); Lymphocytes # 2.3 K/mm3 (0.7-4.5); Lymphocytes % 16.1 % (10-50); Mean Corpuscular HGB Conc 34.5 g/dL (31.8-35.4); Mean Corpuscular Hemoglobin 31.1 pg (27.0-31.2); Mean Corpuscular Volume 90.2 fl (80-94); Mean Platelet Volume 7.8 fl (7.4-10.4); Monocytes # 0.8 K/mm3 (0.1-1.0); Monocytes % 5.4 % (1.7-9.3); Neutrophils # 10.8 K/mm3 (1.8-7.8); Neutrophils % 74.9 % (37.0-80.0); Platelet Count 350 K/mm3 (142-424); Red Cell Distribution Width 13.8 % (11.5-17.5); White Blood Count 14.4 K/mm3 (4.8-10.8)
[2023-12-14 21:27] LABS: Chloride 103 mmol/L (98-107); Potassium 3.4 mmoL/L (3.5-5.1); Sodium 137 mmol/L (136-145)
[2023-12-14 21:29] LABS: Blood Urea Nitrogen 21 mg/dl (9-20); Creatinine Clearance Estimated 109 mL/min (50-200); Estimated Glomerular Filt Rate 71 ml/min (>60); GFR (African American) 85 ML/MIN (>60)
[2023-12-14 21:30] LABS: Alanine Aminotransferase 63 U/L (12-78); Albumin Level 4.4 g/dl (3.5-5.0); Albumin/Globulin Ratio 1.4 (1.1-1.8); Alkaline Phosphatase 77 U/L (38-126); Anion Gap 10.4 mEq/L (5-15); Aspartate Amino Transferase 36 U/L (17-59); Bilirubin,Total 0.8 mg/dl (0.2-1.3); Calcium 9.4 mg/dl (8.4-10.2); Carbon Dioxide 27 mmol/L (22.0-30.0); Globulin 3.2 g/dL (1.3-3.2); Glucose 104 mg/dl (74-100); Total Protein,Serum 7.6 g/dl (6.3-8.2)
[2023-12-14 21:31] LABS: Lactic Acid 1.3 mmol/L (0.7-2.1)
[2023-12-14 21:35] LABS: C-Reactive Protein 8.3 mg/L (0-4)
[2023-12-14] MEDS: KETOROLAC 30MG/ML VIAL 30 MG IM (21:44)
[2023-12-14] MEDS: DEXAMETHASONE 4MG TABLET 10 MG PO (21:44)
--- NOTE | 2023-12-14 22:26 | PC.NURSE ---
Spoke with lab at this time, they state there is 11 minutes left on ESR to result.
[2023-12-14 22:52] LABS: Erythrocyte Sedimentation Rate 8 mm/hr (0-15)
--- NOTE | 2023-12-14 22:54 | PC.NURSE ---
Spoke with [facility] at this time for possible transfer for rule-out septic bursitis. [facility] states they will call us back.
[2023-12-15] MEDS: DALBAVANCIN HCL 1,500 MG in DEXTROSE 5 % IN WATER 250 ML 500 MG IV (00:07)
[2023-12-15 00:34] VITALS: BP 143/93; PULSE 52; RESP 20; TEMP 36.7; O2SAT 100
== END 2023-12-15 00:43 | disposition home or self-care (01) ==
PROVIDERS: Emergency Provider Emergency Medicine; PCP Family Medicine
DX: M71.161 Other infective bursitis, right knee (principal); M25.561 Pain in right knee; R22.41 Localized swelling, mass and lump, right lower limb; J45.909 Unspecified asthma, uncomplicated
CPT/HCPCS: 73562; 80053; 83605; 85025; 85651; 86140; 96372; 96374; 99285; J0875

== ENCOUNTER 2024-02-27 14:40 | Outpatient (CLI) | payer OTHER, SELFPAY ==
[2024-02-27 17:56] LABS: Microscopic, Urine URINE MICROSCOPIC (MICROSCOPIC)
[2024-02-27 18:20] LABS: Basophils # 0.1 K/mm3 (0-0.2); Eosinophils # 0.3 K/mm3 (0.0-0.4); Eosinophils % 4.9 % (0.1-12.0); Hematocrit 50.6 % (42.0-52.0); Hemoglobin 16.6 g/dL (14.1-18.0); Lymphocytes # 1.8 K/mm3 (0.7-4.5); Lymphocytes % 27.5 % (10-50); Mean Corpuscular HGB Conc 32.8 g/dL (31.8-35.4); Mean Corpuscular Volume 94.6 fl (80-94); Mean Platelet Volume 9.1 fl (7.4-10.4); Monocytes # 0.5 K/mm3 (0.1-1.0); Monocytes % 7.6 % (1.7-9.3); Neutrophils # 3.8 K/mm3 (1.8-7.8); Neutrophils % 59.1 % (37.0-80.0); Platelet Count 393 K/mm3 (142-424); Red Blood Count 5.35 M/mm3 (4.60-6.20); Red Cell Distribution Width 13.8 % (11.5-17.5); White Blood Count 6.5 K/mm3 (4.8-10.8)
[2024-02-27 18:20] LABS: Appearance,Urine CLEAR (Clear); Bilirubin,Urine Negative (Negative); Blood, Urine TRACE-I (Negative); Color,Urine YELLOW (Yellow); Glucose,Urine (UA) Negative (Negative); Ketones,Urine Negative (Negative); Leukocyte Esterase,Urine Negative (Negative); Nitrate,Urine Negative (Negative); Protein,Urine Negative (Negative); Specific Gravity, Urine >= 1.030 (1.005-1.030); Urobilinogen,Urine 0.2 EU/dl (0.2)
[2024-02-27 18:26] LABS: Alanine Aminotransferase 40 U/L (12-78); Albumin Level 4.7 g/dl (3.5-5.0); Albumin/Globulin Ratio 1.7 (1.1-1.8); Alkaline Phosphatase 81 U/L (38-126); Anion Gap 17.2 mEq/L (5-15); Aspartate Amino Transferase 37 U/L (17-59); Bilirubin,Total 1.1 mg/dl (0.2-1.3); Blood Urea Nitrogen 22 mg/dl (9-20); Calcium 9.8 mg/dl (8.4-10.2); Carbon Dioxide 23 mmol/L (22.0-30.0); Chloride 107 mmol/L (98-107); Chol/HDL Ratio 6.6 (1-3.5); Cholesterol 225 mg/dl (140-200); Estimated Glomerular Filt Rate 64 ml/min (>60); GFR (African American) 78 ML/MIN (>60); Globulin 2.7 g/dL (1.3-3.2); Glucose 90 mg/dl (74-100); HDL Cholesterol 34 mg/dl (40-60); Potassium 4.2 mmoL/L (3.5-5.1); Sodium 143 mmol/L (136-145); Total Protein,Serum 7.4 g/dl (6.3-8.2); Triglycerides 62 mg/dl (30-150); VLDL Cholesterol 12 mg/dL (0-40)
[2024-02-27 18:35] LABS: RBC,Urine Occasional #/hpf (0-3); Squamous Epithelial Cell,Urine Occasional #/hpf (0-5)
[2024-02-27 18:37] LABS: Direct LDL Cholesterol 140.78 mg/dL (100-129)
[2024-02-27 18:43] LABS: 25-OH Vitamin D, Total 27.1 ng/mL (30-100)
[2024-02-27 18:56] LABS: Thyroid Stimulating Hormone 0.88 uIU/mL (0.465-4.68)
[2024-02-27 19:01] LABS: Hemoglobin A1C 5.1 % (4.0-6.0)
[2024-02-27 19:15] LABS: Vitamin B12 762 pg/mL (239-931)
[2024-02-27 20:33] LABS: Free T4 (Free Thyroxine) 1.12 ng/dl (0.78-2.19)
== END 2024-02-27 23:59 | disposition home or self-care (01) ==
LOC: LAB.DROPOF 02-28 14:41
PROVIDERS: PCP Nurse Practitioner Family; Visit Provider Nurse Practitioner Family
DX: R53.83 Other fatigue (principal); I10 Essential (primary) hypertension; Z13.220 Encounter for screening for lipoid disorders; R40.0 Somnolence; Z13.1 Encounter for screening for diabetes mellitus; E55.9 Vitamin D deficiency, unspecified; E78.00 Pure hypercholesterolemia, unspecified; Z79.899 Other long term (current) drug therapy; F17.220 Nicotine dependence, chewing tobacco, uncomplicated
CPT/HCPCS: 80053; 80061; 81001; 82306; 82607; 83036; 84156; 84439; 84443; 85025; 87086

== ENCOUNTER 2024-06-15 19:17 | Emergency (ER) | payer OTHER, SELFPAY ==
[2024-06-15 19:19] VITALS: BP 140/73; PULSE 113; RESP 23; TEMP 36.9; O2SAT 97; BMI 26.4
--- NOTE | 2024-06-15 19:23 | ED_ITS ---
<Statement entered by Salbador Huitron MD - 06/15/24 22:00> I was consulted by the KALANI, and we discussed the complexity of the problems being addressed. I approved the treatment and management plan for this patient's care in the emergency department, thus performing a substantive portion of the medical decision making. Salbador Huitron MD Discharge Plan Disposition Patient Disposition: Home, Self-Care Condition: Good Prescriptions Prescriptions: New epinephrine [EpiPen 2-Jaime] 0.3 mg/0.3 mL auto-injector 0.3 mg IM Q10M PRN (Reason: anaphylaxis) Qty: 2 0RF Rx Instructions: for 2 doses No Action nicotine 21-14-7 mg/24 hr patch, TD daily, sequential See Rx Instructions transdermal .COMPLEX Qty: 56 0RF Rx Instructions: apply 1-21 mg NICOTINE PATCH daily for 28 days; follow with 1-14 mg PATCH daily for 14 days, then 1-7mg PATCH daily for 14 days transdermal lisinopril 20 mg tablet 20 mg PO DAILY Qty: 90 3RF Zyrtec 10 mg Capsule 10 mg PO DAILY Referrals Follow up/Referrals: Valencia Robin APRN [Primary Care Provider] - See instructions Activity Restrictions/Add. Instructions Additional Instructions/Restrictions: Follow-up with your PCP within 48 hours for recheck. Return to ER for any worsening signs or symptoms as needed. I have sent an EpiPen prescription into your pharmacy. Clinical Impressions Clinical Impression: Accidental insect sting Anaphylaxis Qualifiers: Encounter type: initial encounter Qualified Code(s): T78.2XXA - Anaphylactic shock, unspecified, initial encounter Instructions Patient Instructions: DI for Insect Bites and Stings Print Language Print Language: Jordanian Discharge ED Provider: Kash Cross General Adult HPI <DENNY Lopez - Last Filed: 06/15/24 21:48> General Chief complaint: Allergic Reaction Stated complaint: Stung by nest of bees,throat is closing Time Seen by Provider: 06/15/24 19:21 History of Present Illness HPI narrative: Patient presents for evaluation of yellowjacket stings. Patient was mowing the grass in his yard and inadvertently stumbled upon a yellowjacket nest. He was stung multiple times over multiple places body including face torso arms and legs. 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 Patient reports that he has difficulty breathing but no chest pain fever chills hemoptysis hematochezia melena nausea vomit diarrhea. Related Data Home Medications ?Medication ?Instructions ?Recorded ?Confirmed cetirizine 10 mg capsule (Zyrtec) 10 mg PO DAILY 10/20/23 03/12/24 Previous Rx's ?Medication ?Instructions ?Recorded lisinopril 20 mg tablet 20 mg PO DAILY #90 tabs 02/27/24 nicotine See Rx Instructions transdermal 03/12/24 21mg/24hr-14mg/24hr-7mg/24hr daily .COMPLEX #56 patches transderm patches,sequentl epinephrine 0.3 mg/0.3 mL 0.3 mg (0.3 mL) IM Q10M PRN 06/15/24 injection, auto-injector (EpiPen anaphylaxis #2 ea 2-Jaime) Allergies Allergy/AdvReac Type Severity Reaction Status Date / Time bee venom protein (honey bee) Allergy Severe Anaphylaxis Verified 03/12/24 08:21 [facility] <DENNY Lopez - Last Filed: 06/15/24 21:48> [facility] Disclaimer: The information contained in this section may have been updated after the patient was seen, as this information can be updated by other users. 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 Surgical History History of tonsillectomy Family History Other No significant family history Social History Smoking Status: Never smoker alcohol intake: never substance use type: opiates current occupational status: other Travel in the last 8 weeks: None household members: family housing: house caffeine: Yes <DENNY Lopez - Last Filed: 06/15/24 21:48> ROS Obtained: Yes Systems reviewed as appropriate & no additional complaints except as documented Physical Exam <DENNY Lopez - Last Filed: 06/15/24 21:48> General General appearance: alert and in no apparent distress Head Head exam: atraumatic and normal inspection Eye Eye exam: Present normal appearance, PERRL and EOMI ENT ENT exam: Present normal exam, normal oropharynx, mucous membranes moist and other (Patient has swelling of the upper lip but the oropharynx is patent without evidence of angioedema) Neck Neck exam: Present normal inspection, full ROM and trachea midline; Absent lymphadenopathy Chest Chest inspection: Present normal inspection and symmetric chest wall rise Respiratory Respiratory exam: Present normal lung sounds bilaterally; Absent respiratory distress, wheezes, stridor or accessory muscle use Cardiovascular Cardiovascular exam: Present normal rhythm, tachycardia, normal heart sounds, +S1 and +S2 Abdominal Exam Abdominal exam: Present soft and normal bowel sounds; Absent tenderness Extremities Exam Extremities exam: Present normal inspection and full ROM Back Exam Back exam: Present normal inspection and full ROM Neurological Exam Neurological exam: Present alert and oriented X3 Skin Skin exam: Present warm, dry and other (Patient has too numerous to count areas of stings on his torso arms legs and 1 singular 1 on his left upper lip with raised erythema surrounding the stings) Lymphatic Lymphatic Findings: no adenopathy Medical Decision Making <DENNY Lopez - Last Filed: 06/15/24 21:48> Medical Records Medical records reviewed: Yes I reviewed the patient's medical records. Jovi Inquiry Pt receiving controlled substance: No Vital Signs: 06/15/24 19:19 06/15/24 20:00 06/15/24 20:30 Temperature 98.4 F Temperature Source Oral Pulse Rate 109 H 100 H Pulse Rate [Right] 113 H Respiratory Rate 23 27 H 27 H Blood Pressure 108/75 L 118/73 Blood Pressure [Right Arm] 140/73 Blood Pressure Mean Blood Pressure Mean [Right Arm] 95 Blood Pressure Position [Right Arm] Sitting 02 Sat by Pulse Oximetry 97 97 95 Oxygen Delivery Method Room Air 06/15/24 21:00 06/15/24 21:30 06/15/24 22:02 Temperature Temperature Source Pulse Rate 101 H 111 H 100 H Pulse Rate [Right] Respiratory Rate 28 H 30 H 25 H Blood Pressure 120/69 118/69 126/77 Blood Pressure [Right Arm] Blood Pressure Mean 82 86 Blood Pressure Mean [Right Arm] Blood Pressure Position [Right Arm] 02 Sat by Pulse Oximetry 95 94 L 97 Oxygen Delivery Method Orders (Tests/Meds): ED MEDICATIONS Generic Name Dose Route Start Last Admin Trade Name Freq PRN Reason Stop Dose Admin Sodium Chloride 8 ml 06/15/24 19:26 Sodium Chloride 0.9% 10ml Vial IV 07/15/24 19:25 NEEDED PRN dilute pepcid Discontinued Medications Generic Name Dose Route Start Last Admin Trade Name Freq PRN Reason Stop Dose Admin Diphenhydramine HCl 50 mg 06/15/24 19:26 06/15/24 19:39 Diphenhydramine 50mg/Ml Vial IV 06/15/24 19:27 50 mg ONCE ONE Administration Epinephrine HCl 0.3 mg 06/15/24 19:26 06/15/24 19:42 Epinephrine 1 Mg/Ml Ampul IM 06/15/24 19:27 0.3 mg ONCE ONE Administration Famotidine 40 mg 06/15/24 19:26 06/15/24 19:41 Famotidine 20mg/2ml Vial IV 06/15/24 19:27 40 mg ONCE ONE Administration Lactated Ringer's 1,000 mls @ 999 mls/hr 06/15/24 21:58 06/15/24 22:03 Lactated Ringer's 1000 Ml Bag IV 06/15/24 22:58 999 mls/hr .Q1H1M ONE Administration Methylprednisolone Sodium Succinate 125 mg 06/15/24 19:32 06/15/24 19:38 Methylprednisolone Sod Succ 125mg Vial IV 06/15/24 19:33 125 mg ONCE ONE Administration Medical Decision Narrative: In summary patient is a 33-year-old male who presents to the emergency department for evaluation of multiple yellowjacket stings. Patient is normotensive at 140/73 but tachycardic at 113 satting at 97% on room air breathing 23 times a minute afebrile at 98.4 upon arrival. Physical exam is remarkable for numerous isolated areas of stings on his exposed skin which includes his arms legs some on his anterior torso and 1 singular 1 on his left upper lip. Patient has normal breath sounds with no adventitious sounds with no significant increased work of breathing. Differential diagnosis includes insect sting anaphylaxis versus localized reaction. Initial workup was considered including chest x-ray and hematologic labs however patient while subjectively reports shortness of breath has no objective data of respiratory compromise including normal breath sounds satting at greater 97% on room air and no increased work of breathing so his further workup was deferred for now.. Initial interventions include IM epinephrine, Benadryl, Pepcid, and Solu-Medrol. The patient was placed in observation status at 1945. Medical necessity for observational status is observation for recurrence of anaphylaxis. The patient was provided serial reevaluations and continuous cardiac monitoring and pulse oximetry while awaiting results. Reevaluation at 2100 hrs. show the patient had significant response to initial interventions with defervescent's of his localized reactions and subjectively feeling like he was breathing better. Patient handed off to Dr. Cross at 2300 hrs. during observation. <Kash Cross MD - Last Filed: 06/16/24 00:11> Vital Signs: 06/15/24 19:19 06/15/24 20:00 06/15/24 20:30 Temperature 98.4 F Temperature Source Oral Pulse Rate 109 H 100 H Pulse Rate [Right] 113 H Respiratory Rate 23 27 H 27 H Blood Pressure 108/75 L 118/73 Blood Pressure [Right Arm] 140/73 Blood Pressure Mean Blood Pressure Mean [Right Arm] 95 Blood Pressure Position [Right Arm] Sitting 02 Sat by Pulse Oximetry 97 97 95 Oxygen Delivery Method Room Air 06/15/24 21:00 06/15/24 21:30 06/15/24 22:02 Temperature Temperature Source Pulse Rate 101 H 111 H 100 H Pulse Rate [Right] Respiratory Rate 28 H 30 H 25 H Blood Pressure 120/69 118/69 126/77 Blood Pressure [Right Arm] Blood Pressure Mean 82 86 Blood Pressure Mean [Right Arm] Blood Pressure Position [Right Arm] 02 Sat by Pulse Oximetry 95 94 L 97 Oxygen Delivery Method Orders (Tests/Meds): ED MEDICATIONS Generic Name Dose Route Start Last Admin Trade Name Freq PRN Reason Stop Dose Admin Sodium Chloride 8 ml 06/15/24 19:26 Sodium Chloride 0.9% 10ml Vial IV 07/15/24 19:25 NEEDED PRN dilute pepcid Discontinued Medications Generic Name Dose Route Start Last Admin Trade Name Freq PRN Reason Stop Dose Admin Diphenhydramine HCl 50 mg 06/15/24 19:26 06/15/24 19:39 Diphenhydramine 50mg/Ml Vial IV 06/15/24 19:27 50 mg ONCE ONE Administration Epinephrine HCl 0.3 mg 06/15/24 19:26 06/15/24 19:42 Epinephrine 1 Mg/Ml Ampul IM 06/15/24 19:27 0.3 mg ONCE ONE Administration Famotidine 40 mg 06/15/24 19:26 06/15/24 19:41 Famotidine 20mg/2ml Vial IV 06/15/24 19:27 40 mg ONCE ONE Administration Lactated Ringer's 1,000 mls @ 999 mls/hr 06/15/24 21:58 06/15/24 22:03 Lactated Ringer's 1000 Ml Bag IV 06/15/24 22:58 999 mls/hr .Q1H1M ONE Administration Methylprednisolone Sodium Succinate 125 mg 06/15/24 19:32 06/15/24 19:38 Methylprednisolone Sod Succ 125mg Vial IV 06/15/24 19:33 125 mg ONCE ONE Administration Medical Decision Narrative: In summary patient is a 33-year-old male who presents to the emergency department for evaluation of multiple yellowjacket stings. Patient is normotensive at 140/73 but tachycardic at 113 satting at 97% on room air breathing 23 times a minute afebrile at 98.4 upon arrival. Physical exam is remarkable for numerous isolated areas of stings on his exposed skin which includes his arms legs some on his anterior torso and 1 singular 1 on his left upper lip. Patient has normal breath sounds with no adventitious sounds with no significant increased work of breathing. Differential diagnosis includes insect sting anaphylaxis versus localized reaction. Initial workup was considered including chest x-ray and hematologic labs however patient while subjectively reports shortness of breath has no objective data of respiratory compromise including normal breath sounds satting at greater 97% on room air and no increased work of breathing so his further workup was deferred for now.. Initial interventions include IM epinephrine, Benadryl, Pepcid, and Solu-Medrol. The patient was placed in observation status at 1945. Medical necessity for observational status is observation for recurrence of anaphylaxis. The patient was provided serial reevaluations and continuous cardiac monitoring and pulse o ximetry while awaiting results. Reevaluation at 2100 hrs. show the patient had significant response to initial interventions with defervescent's of his localized reactions and subjectively feeling like he was breathing better. Patient handed off to Dr. Cross at 2300 hrs. during observation. [place] JULIAN: I assumed care of the patient at the time of handoff from the prior provider. On reassessment at midnight, patient no longer has lip swelling or any symptoms at this time. On my interpretation of rn cardiac cath, he remains mildly tachycardic, no hypotension, normal sats. Lungs clear. Given this, patient was deemed appropriate for discharge and outpatient management. Interactive discussion was had with patient regarding discharge. Less than 30 minutes were utilized to repair discharge. Patient was discharged with prescription for EpiPen given instructions regarding return precautions. Presentation is most consistent with anaphylaxis secondary to insect stings. I was consulted by the KALANI, and we discussed the complexity of the problems being addressed. I approved the treatment and management plan for this patient?s care in the Emergency Department, thus performing a substantive portion of the medical decision making. Kash Cross MD Critical Care <DENNY Lopez - Last Filed: 06/15/24 21:48> Critical Care Time Critical Care Time: No <Kash Cross MD - Last Filed: 06/16/24 00:11> Critical Care Time Critical Care Time: Yes Attestation: On 06/15/24, the high probability of a clinically significant, sudden or life threatening deterioration of the following system(s) required my full and direct attention, intervention and personal management. The time I documented below is in addition to time spent performing reported procedures but includes the follo wing listed in this critical care notation. Total Time Total Critical Care Time: 35
[2024-06-15] MEDS: METHYLPREDNISOLONE SOD SUCC 125MG VIAL 125 MG IV (19:38)
[2024-06-15] MEDS: diphenhydrAMINE 50MG/ML VIAL 50 MG IV (19:39)
[2024-06-15] MEDS: FAMOTIDINE 20MG/2ML VIAL 40 MG IV (19:41)
[2024-06-15] MEDS: EPINEPHrine 1 MG/ML AMPUL 0.3 MG IM (19:42)
[2024-06-15 20:00] VITALS: BP 108/75; PULSE 109; RESP 27; O2SAT 97
[2024-06-15 20:30] VITALS: BP 118/73; PULSE 100; RESP 27; O2SAT 95
[2024-06-15 21:00] VITALS: BP 120/69; PULSE 101; RESP 28; O2SAT 95
--- NOTE | 2024-06-15 21:25 | PC.NURSE ---
Patient sitting up in bed alert, watching phone at this time, with drink at bedside and tolerating. Patient states that he feels much better. Rates pain 0/10 at this time, denies needs or concerns.
[2024-06-15 21:30] VITALS: BP 118/69; PULSE 111; RESP 30; O2SAT 94
[2024-06-15 22:02] VITALS: BP 126/77; PULSE 100; RESP 25; O2SAT 97
[2024-06-15] MEDS: LACTATED RINGERS 1000ML 1,000 ML 999 ML IV (22:03)
--- NOTE | 2024-06-15 22:28 | PC.NURSE ---
rounded on patient call light within reach no needs at this time
[2024-06-16 00:07] VITALS: BP 122/82; PULSE 119; RESP 16; TEMP 36.7; O2SAT 99
== END 2024-06-16 00:09 | disposition home or self-care (01) ==
PROVIDERS: Emergency Provider Emergency Medicine; PCP Nurse Practitioner Family
DX: T78.2XXA Anaphylactic shock, unspecified, initial encounter (principal); T63.461A Toxic effect of venom of wasps, accidental (unintentional), initial encounter; R00.0 Tachycardia, unspecified
CPT/HCPCS: 96361; 96372; 96374; 96375; 99291; J1200; J2919; J7120; S0028

== ENCOUNTER 2024-06-17 14:53 | Outpatient (CLI) | payer OTHER, SELFPAY ==
[2024-06-17 18:53] LABS: Alanine Aminotransferase 44 U/L (12-78); Albumin Level 4.5 g/dl (3.5-5.0); Albumin/Globulin Ratio 1.5 (1.1-1.8); Alkaline Phosphatase 66 U/L (38-126); Anion Gap 15.6 mEq/L (5-15); Aspartate Amino Transferase 30 U/L (17-59); Bilirubin,Total 0.7 mg/dl (0.2-1.3); Blood Urea Nitrogen 28 mg/dl (9-20); Calcium 9.8 mg/dl (8.4-10.2); Carbon Dioxide 26 mmol/L (22.0-30.0); Chloride 103 mmol/L (98-107); Chol/HDL Ratio 5.2 (1-3.5); Cholesterol 232 mg/dl (140-200); Estimated Glomerular Filt Rate 64 ml/min (>60); GFR (African American) 78 ML/MIN (>60); Glucose 79 mg/dl (74-100); HDL Cholesterol 45 mg/dl (40-60); Potassium 3.6 mmoL/L (3.5-5.1); Sodium 141 mmol/L (136-145); Total Protein,Serum 7.5 g/dl (6.3-8.2); Triglycerides 157 mg/dl (30-150); VLDL Cholesterol 31 mg/dL (0-40)
[2024-06-17 19:04] LABS: Direct LDL Cholesterol 135.14 mg/dL (100-129)
== END 2024-06-17 23:59 | disposition home or self-care (01) ==
LOC: LAB.DROPOF 06-18 14:53
PROVIDERS: PCP Student in an Organized Health Care Education/Training Program; Visit Provider Student in an Organized Health Care Education/Training Program
DX: I10 Essential (primary) hypertension (principal); E55.9 Vitamin D deficiency, unspecified
CPT/HCPCS: 80053; 80061; 82306

== ENCOUNTER 2024-09-17 08:30 | Outpatient (CLI) | payer OTHER, SELFPAY ==
[2024-09-17 18:42] LABS: Anion Gap 16.2 mEq/L (5-15); Blood Urea Nitrogen 22 mg/dl (9-20); Calcium 9.7 mg/dl (8.4-10.2); Carbon Dioxide 23 mmol/L (22.0-30.0); Chloride 104 mmol/L (98-107); Chol/HDL Ratio 6.1 (1-3.5); Cholesterol 239 mg/dl (140-200); Estimated Glomerular Filt Rate 70 ml/min (>60); GFR (African American) 85 ML/MIN (>60); Glucose 78 mg/dl (74-100); HDL Cholesterol 39 mg/dl (40-60); Potassium 4.2 mmoL/L (3.5-5.1); Sodium 139 mmol/L (136-145); Triglycerides 106 mg/dl (30-150); VLDL Cholesterol 21 mg/dL (0-40)
[2024-09-17 18:53] LABS: Direct LDL Cholesterol 178.78 mg/dL (100-129)
[2024-09-17 21:21] LABS: HIV (1&2) Antibody Rapid NONREACTIVE (NONREACTIVE)
[2024-09-19 05:12] LABS: HCV Ab Non Reactive (Non Reactive)
== END 2024-09-17 23:59 | disposition home or self-care (01) ==
LOC: LAB.DROPOF 09-18 10:48
PROVIDERS: PCP Nurse Practitioner Family; Visit Provider Nurse Practitioner Family
DX: Z11.59 Encounter for screening for other viral diseases (principal); I10 Essential (primary) hypertension; Z11.4 Encounter for screening for human immunodeficiency virus [HIV]; E78.5 Hyperlipidemia, unspecified
CPT/HCPCS: 80048; 80061; 86803; 87389

== ENCOUNTER 2025-03-07 13:13 | Emergency (ER) | payer BC, SELFPAY ==
[2025-03-07] VITALS (12 sets, daily range): BP systolic 107–117; BP diastolic 67–80; PULSE 86–108; RESP 18; TEMP 36.5–36.9; O2SAT 93–99; BMI 28.7
--- NOTE | 2025-03-07 13:29 | XR_ITS ---
PROCEDURE INFORMATION: Exam: XR Right Knee Exam date and time: 03/07/2025 1:57 PM Age: 34 years old Clinical indication: Pain; Knee; Right; Additional info: Fluid pain TECHNIQUE: Imaging protocol: Radiologic exam of the right knee. Views: 3 views. Total images: 3 COMPARISON: CR XR KNEE RT 3V 12/14/2023 8:26 PM FINDINGS: Bones/joints: Small amount of fluid noted within the suprapatellar joint space. No evidence of acute fracture or dislocation. Soft tissues: Prepatellar soft tissue swelling. IMPRESSION: 1. Prepatellar soft tissue swelling. 2. Small amount of fluid noted within the suprapatellar joint space. 3. No evidence of acute fracture or dislocation.
[2025-03-07] MEDS: METHYLPREDNISOLONE SOD SUCC 125MG VIAL 80 MG IV (14:00)
[2025-03-07] MEDS: HYDROCODONE/APAP 5/325 MG TABLET 2 TAB PO (14:00)
[2025-03-07 14:03] LABS: Basophils # 0.1 K/mm3 (0-0.2); Basophils % 0.4 % (0.1-2.0); Eosinophils # 0.5 Kmm3 (0.0-0.4); Eosinophils % 3.7 % (0.1-12.0); Hematocrit 45.8 % (42.0-52.0); Lymphocytes # 1.9 K/mm3 (0.7-4.5); Lymphocytes % 14.8 % (10-50); Mean Corpuscular HGB Conc 34.9 g/dL (31.8-35.4); Mean Corpuscular Hemoglobin 31.3 pg (27.0-31.2); Mean Corpuscular Volume 89.5 fl (80-94); Mean Platelet Volume 9.8 fl (7.4-10.4); Monocytes # 1.1 K/mm3 (0.1-1.0); Monocytes % 8.4 % (1.7-9.3); Neutrophils # 9.1 K/mm3 (1.8-7.8); Neutrophils % 72.2 % (37.0-80.0); Nucleated Red Blood Cells # 0 10^3/uL; Nucleated Red Blood Cells % 0 %; Platelet Count 342 K/mm3 (142-424); Red Blood Count 5.12 M/mm3 (4.60-6.20); Red Cell Distribution Width 12.8 % (11.5-17.5); White Blood Count 12.6 K/mm3 (4.8-10.8)
--- NOTE | 2025-03-07 14:05 | ED_ITS ---
<Statement entered by Lico Hickman MD - 03/13/25 19:43> I was consulted by the KALANI, and we discussed the complexity of the problems being addressed. I approved the treatment and management plan for this patient's care in the emergency department, thus performing a substantive portion of the medical decision making. Lico Hickman MD, MADDIE, FACEP Discharge Plan Disposition Patient Disposition: Home, Self-Care Condition: Good Prescriptions Prescriptions: New cephalexin 500 mg capsule 500 mg PO BID 10 Days Qty: 20 0RF sulfamethoxazole-trimethoprim [Bactrim DS] 800-160 mg tablet 1 tab PO BID 10 Days Qty: 20 0RF No Action omega-3 fatty acids 1,000 mg capsule 1,000 mg PO QHS coQ10 (ubiquinol) [Qunol Jose CoQ10] 100 mg capsule 200 mg PO QHS cholecalciferol (vitamin D3) 50 mcg (2,000 unit) capsule 50 mcg PO DAILY amoxicillin-pot clavulanate 875-125 mg tablet 1 tab PO BID 10 Days Qty: 20 0RF methylprednisolone 4 mg tablets,dose pack See Rx Instructions PO PER PKG DIR Qty: 21 0RF Rx Instructions: PO PER PKG DIR acbfkigjaxvuhrt-sxtrurunv-UV [Bromfed DM] 2-30-10 mg/5 mL syrup 5 ml PO Q4-6H PRN (Reason: cold symptoms) Qty: 118 0RF atorvastatin 20 mg tablet 20 mg PO DAILY Qty: 90 3RF lisinopril 20 mg tablet 20 mg PO DAILY Qty: 90 1RF Zyrtec 10 mg Capsule 10 mg PO DAILY epinephrine [EpiPen 2-Jaime] 0.3 mg/0.3 mL auto-injector 0.3 mg IM Q10M PRN (Reason: anaphylaxis) Qty: 2 0RF Rx Instructions: for 2 doses Referrals Follow up/Referrals: Valencia Robin APRN [Primary Care Provider] - See instructions Clinical Impressions Clinical Impression: Septic prepatellar bursitis of right knee Instructions Patient Instructions: DI for Cellulitis -- Adult Print Language Print Language: Wolof Discharge ED Provider: Lico Hickman General Adult HPI <Shannan Benotn (ED), SCREEN PRINTING PASTER - Last Filed: 03/07/25 17:32> General Chief complaint: Extremity Problem,Nontraumatic Stated complaint: R knee pain/swelling Time Seen by Provider: 03/07/25 13:29 Mode of Arrival: Ambulatory Source of Information: Patient Description of Symptoms (Recalled from ER Triage Doc. by RN): r knee pain,swelling,redness x2 days History of Present Illness HPI narrative: This is a 34-year-old male who presents to the ED today for right knee pain. His right knee is swollen and painful. He says the pain started on but the swelling just started yesterday and has been worsening since this morning. The past few days he has been on his knees working on teagan. He has had a history of septic joint in that same knee in the past. He has no other symptoms at this time. Related Data Home Medications ?Medication ?Instructions ?Recorded ?Confirmed cetirizine 10 mg capsule (Zyrtec) 10 mg PO DAILY 10/20/23 01/19/25 cholecalciferol (vitamin D3) 50 50 mcg PO DAILY 09/17/24 01/19/25 mcg (2,000 unit) capsule coQ10 (ubiquinol) 100 mg capsule 200 mg PO QHS 09/17/24 01/19/25 (Qunol Jose CoQ10) omega-3 fatty acids 1,000 mg 1,000 mg PO QHS 09/17/24 01/19/25 capsule Previous Rx's ?Medication ?Instructions ?Recorded epinephrine 0.3 mg/0.3 mL 0.3 mg (0.3 mL) IM Q10M PRN 06/15/24 injection, auto-injector (EpiPen anaphylaxis #2 ea 2-Jaime) atorvastatin 20 mg tablet 20 mg PO DAILY #90 tabs 09/19/24 amoxicillin 875 mg-potassium 1 tab PO BID 10 days #20 tabs 01/19/25 clavulanate 125 mg tablet fhwrnwunvemeuxi-fsyimmqwrlbguau-JJ 5 ml PO Q4-6H PRN cold symptoms 01/19/25 2 mg-30 mg-10 mg/5 mL oral syrup #118 mL (Bromfed DM) methylprednisolone 4 mg tablets in See Rx Instructions PO PER PKG DIR 01/19/25 a dose pack #21 tabs lisinopril 20 mg tablet 20 mg PO DAILY #90 tabs 02/13/25 cephalexin 500 mg capsule 500 mg PO BID 10 days #20 caps 03/07/25 sulfamethoxazole 800 1 tab PO BID 10 days #20 tabs 03/07/25 mg-trimethoprim 160 mg tablet (Bactrim DS) Allergies Allergy/AdvReac Type Severity Reaction Status Date / Time bee venom protein (honey bee) Allergy Severe Anaphylaxis Verified 01/19/25 10:30 Iodinated Contrast Media AdvReac Hives Verified 03/07/25 15:32 PFSH <Shannan Serenity (ED), SCREEN PRINTING PASTER - Last Filed: 03/07/25 17:32> PFS Disclaimer: The information contained in this section may have been updated after the patient was seen, as this information can be updated by other users. 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 Surgical History History of tonsillectomy Family History Other No significant family history Social History Smoking Status: Never smoker alcohol intake: never substance use type: opiates current occupational status: other Travel in the last 8 weeks: None household members: family housing: house caffeine: Yes Have you lived/traveled outside [place] in past 30 days?: No Contact w/someone who lives/traveled outside US past 30 days?: No Exposure to someone with infectious disease in past 14 days?: No Do you have a fever (greater than 100.4 F or 38 C)?: No Have you tested positive for COVID-19: No Exposed to someone with COVID-19 in past 14 days?: No Do you have a sore throat?: No Do you have a cough?: No Do you have any weakness?: No Do you have any diarrhea?: No Are you experiencing any unusual bleeding?: No Do you have any muscle aches/pain?: No Do you have any abdominal pain?: No Are you experiencing loss of taste or smell?: No Other Medical History Have you received the Flu Vaccine for this season: Yes Have you received the Pneumonia Vaccine: No <Shannan Benton (ED), SCREEN PRINTING PASTER - Last Filed: 03/07/25 17:32> ROS Obtained: Yes Systems reviewed as appropriate & no additional complaints except as documented Constitutional Constitutional: Reports as per HPI Physical Exam <Shannan Benton (ED), SCREEN PRINTING PASTER - Last Filed: 03/07/25 17:32> General General appearance: alert Head Head exam: atraumatic and normocephalic Eye Eye exam: Present normal appearance, PERRL and EOMI ENT ENT exam: Present normal exam, normal oropharynx and mucous membranes moist Neck Neck exam: Present full ROM and trachea midline Respiratory Respiratory exam: Present normal lung sounds bilaterally Cardiovascular Cardiovascular exam: Present regular rate, normal rhythm, normal heart sounds, +S1 and +S2 Extremities Exam Extremities exam: Present tenderness, normal capillary refill, edema and joint swelling (Erythema to right knee, warmth) Neurological Exam Neurological exam: Present alert and oriented X3 Skin Skin exam: Present warm, dry and intact Medical Decision Making <Shannan Benton (ED), SCREEN PRINTING PASTER - Last Filed: 03/07/25 17:32> Medical Records Screening: Per USPSTF and CDC recommendations, given the prevalence of disease in our region, it is our hospital?s policy to screen for HIV and viral Hepatitis for all patients aged 18 and over and those with ongoing risk factors. Jovi Inquiry Pt receiving controlled substance: No Jovi was queried for this patient: No Vital Signs: 03/07/25 13:19 03/07/25 13:22 03/07/25 13:30 Temperature 97.7 F Temperature Source Oral Pulse Rate 108 H 108 H Pulse Rate [Right] 105 H Respiratory Rate 18 Blood Pressure 114/80 111/72 Blood Pressure [Right Arm] 114/80 Blood Pressure Mean [Right Arm] 91 02 Sat by Pulse Oximetry 97 96 95 Oxygen Delivery Method Room Air Room Air 03/07/25 13:45 03/07/25 14:04 03/07/25 14:15 Temperature Temperature Source Pulse Rate 95 H 92 H 86 Pulse Rate [Right] Respiratory Rate Blood Pressure 114/69 111/68 113/76 Blood Pressure [Right Arm] Blood Pressure Mean [Right Arm] 02 Sat by Pulse Oximetry 97 98 99 Oxygen Delivery Method Room Air Room Air Room Air 03/07/25 14:31 03/07/25 14:45 03/07/25 15:01 Temperature Temperature Source Pulse Rate 96 H 97 H 98 H Pulse Rate [Right] Respiratory Rate Blood Pressure 113/76 114/79 107/73 L Blood Pressure [Right Arm] Blood Pressure Mean [Right Arm] 02 Sat by Pulse Oximetry 97 97 95 Oxygen Delivery Method Room Air Room Air Room Air 03/07/25 15:15 03/07/25 15:30 03/07/25 15:42 Temperature 98.4 F Temperature Source Pulse Rate 92 H 92 H 92 H Pulse Rate [Right] Respiratory Rate 18 Blood Pressure 117/67 111/69 111/69 Blood Pressure [Right Arm] Blood Pressure Mean [Right Arm] 02 Sat by Pulse Oximetry 97 93 L Oxygen Delivery Method Room Air Room Air Lab Data Lab Results 03/07/25 13:55: WBC 12.6 H, RBC 5.12, Hgb 16.0, Hct 45.8, MCV 89.5, MCH 31.3 H, MCHC 34.9, RDW 12.8, Plt Count 342, MPV 9.8, Neut % (Auto) 72.2, Lymph % (Auto) 14.8, Emery % (Auto) 8.4, Eos % (Auto) 3.7, Baso % (Auto) 0.4, Neut # (Auto) 9.1 H, Lymph # (Auto) 1.9, Emery # (Auto) 1.1 H, Eos # (Auto) 0.5 H, Baso # (Auto) 0.1, ESR 3, Sodium 143, Potassium 3.6, Chloride 106, Carbon Dioxide 28, Anion Gap 12.6, BUN 19, Creatinine 1.30 H, Estimated Creat Clear 105, Estimated GFR 64, Est GFR ( Amer) 77, Glucose 77, Lactate 1.4, Calcium 10.0, Total Bilirubin 1.0, AST 36, ALT 42, Alkaline Phosphatase 82, C-Reactive Protein 7.6 H , Total Protein 7.7, Albumin 4.9, Globulin 2.8, Albumin/Globulin Ratio 1.8, HCV Ab KOTA w/Rflx PCR Qn Negative, HIV Ag/Ab Combo Qual Negative 03/07/25 13:55 03/07/25 13:55 Orders (Tests/Meds): ED MEDICATIONS Discontinued Medications Generic Name Dose Route Start Last Admin Trade Name Milli PRN Reason Stop Dose Admin Hydrocodone Bitart/Acetaminophen 2 tab 03/07/25 13:31 03/07/25 14:00 Hydrocodone/Apap 5/325 Mg Tablet PO 03/07/25 13:32 2 tab ONCE ONE Administration Cephalexin HCl 500 mg 03/07/25 14:43 03/07/25 15:15 Cephalexin 500mg Capsule PO 03/07/25 14:44 500 mg ONCE ONE Administration Methylprednisolone Sodium Succinate 80 mg 03/07/25 13:32 03/07/25 14:00 Methylprednisolone Sod Succ 125mg Vial IV 03/07/25 13:33 80 mg ONCE ONE Administration Trimethoprim/Sulfamethoxazole 1 each 03/07/25 14:43 03/07/25 15:14 Sulfa/Trimethoprim 1 Tablet PO 03/07/25 14:44 1 each ONCE ONE Administration ORDERS Category Date Time Status Knee XR right 3 views [XR knee RT 3V] Stat Exams 03/07/25 13:29 Completed POCUS Point of Care (ER Only) Stat Exams 03/07/25 14:31 Taken CBC w/Auto Diff [Complete Blood Count Auto Diff] Stat Lab 03/07/25 13:55 Completed CRP [C-Reactive Protein] Stat Lab 03/07/25 13:55 Completed Comprehensive Metabolic Panel Stat Lab 03/07/25 13:55 Completed Erythrocyte Sedimentation Rate Stat Lab 03/07/25 13:55 Completed HIV Combo Stat Lab 03/07/25 13:55 Completed Hepatitis C Ab Qual. W/ RFX Stat Lab 03/07/25 13:55 Completed Lactic Acid Stat Lab 03/07/25 13:55 Completed Wound Culture and Gram Stain Stat Micro 03/07/25 15:10 Received Medical Decision Narrative: Insert review patient is a 34-year-old male presenting to the emergency department for evaluation of right knee swelling with pain. He has history of a septic bursitis that was treated with IV antibiotics. Patient started this episode Thday with pain and swelling yesterday that has worsened today.. Patient is hemodynamically stable and nontoxic-appearing upon arrival, afebrile. Differential diagnosis includes septic joint, septic bursitis, sepsis, among other things. Workup will be conducted with hematologic labs, specific imaging, provocative tests. Initial inventions include analgesics, antibiotics and wound culture. Initial workup reviewed by me with white count of 12.6. Dr. Hickman did I&D of the right bursitis. He discussed the case with Dr. Palencia as well. He will follow-up with Dr. Palencia on discharge. This is Dr. Hickman or from the [facility] patient has a history of septic bursitis that was initially treated with dalbavancin 1 year ago and this is recurrent. I did a bedside ultrasound please see limited soft tissue ultrasound and procedure note which demonstrated a significant fluid collection in addition to surrounding cellulitis clinically. I discussed the case with Dr. Palencia given the fact that this is recurrent and the possible need for bursectomy and we discussed that right now he is not systemically ill and that this is not as severe as it was in the past we will try oral antibiotics and I did an incision and drainage placed a vessel loop he will follow-up closely with Dr. Palencia for further discussion of possible bursectomy and/or the need for IV antibiotics etc. if he is not improving. With regards to the initial concern for a septic joint the patient has his leg in a fixed extended position and has no pain or effusion noted on clinical exam he would most likely have his leg in a fixed flexed position with maximal joint capsule diameter if this were a septic joint. Any clearly has a prepatellar fluid collection on bedside ultrasound therefore the working diagnosis is a prepatellar septic bursitis. <Lico Hickman MD - Last Filed: 03/07/25 15:30> Vital Signs: 03/07/25 13:19 03/07/25 13:22 03/07/25 13:30 Temperature 97.7 F Temperature Source Oral Pulse Rate 108 H 108 H Pulse Rate [Right] 105 H Respiratory Rate 18 Blood Pressure 114/80 111/72 Blood Pressure [Right Arm] 114/80 Blood Pressure Mean [Right Arm] 91 02 Sat by Pulse Oximetry 97 96 95 Oxygen Delivery Method Room Air Room Air 03/07/25 13:45 03/07/25 14:04 03/07/25 14:15 Temperature Temperature Source Pulse Rate 95 H 92 H 86 Pulse Rate [Right] Respiratory Rate Blood Pressure 114/69 111/68 113/76 Blood Pressure [Right Arm] Blood Pressure Mean [Right Arm] 02 Sat by Pulse Oximetry 97 98 99 Oxygen Delivery Method Room Air Room Air Room Air 04/26/25 14:31 03/07/25 14:45 03/07/25 15:01 Temperature Temperature Source Pulse Rate 96 H 97 H 98 H Pulse Rate [Right] Respiratory Rate Blood Pressure 113/76 114/79 107/73 L Blood Pressure [Right Arm] Blood Pressure Mean [Right Arm] 02 Sat by Pulse Oximetry 97 97 95 Oxygen Delivery Method Room Air Room Air Room Air 03/07/25 15:15 03/07/25 15:30 03/07/25 15:42 Temperature 98.4 F Temperature Source Pulse Rate 92 H 92 H 92 H Pulse Rate [Right] Respiratory Rate 18 Blood Pressure 117/67 111/69 111/69 Blood Pressure [Right Arm] Blood Pressure Mean [Right Arm] 02 Sat by Pulse Oximetry 97 93 L Oxygen Delivery Method Room Air Room Air Lab Data Lab Results 03/07/25 13:55: WBC 12.6 H, RBC 5.12, Hgb 16.0, Hct 45.8, MCV 89.5, MCH 31.3 H, MCHC 34.9, RDW 12.8, Plt Count 342, MPV 9.8, Neut % (Auto) 72.2, Lymph % (Auto) 14.8, Emery % (Auto) 8.4, Eos % (Auto) 3.7, Baso % (Auto) 0.4, Neut # (Auto) 9.1 H, Lymph # (Auto) 1.9, Emery # (Auto) 1.1 H, Eos # (Auto) 0.5 H, Baso # (Auto) 0.1, ESR 3, Sodium 143, Potassium 3.6, Chloride 106, Carbon Dioxide 28, Anion Gap 12.6, BUN 19, Creatinine 1.30 H, Estimated Creat Clear 105, Estimated GFR 64, Est GFR ( Amer) 77, Glucose 77, Lactate 1.4, Calcium 10.0, Total Bilirubin 1.0, AST 36, ALT 42, Alkaline Phosphatase 82, C-Reactive Protein 7.6 H , Total Protein 7.7, Albumin 4.9, Globulin 2.8, Albumin/Globulin Ratio 1.8, HCV Ab KOTA w/Rflx PCR Qn Negative, HIV Ag/Ab Combo Qual Negative Orders (Tests/Meds): ED MEDICATIONS Discontinued Medications Generic Name Dose Route Start Last Admin Trade Name Freq PRN Reason Stop Dose Admin Hydrocodone Bitart/Acetaminophen 2 tab 03/07/25 13:31 03/07/25 14:00 Hydrocodone/Apap 5/325 Mg Tablet PO 03/07/25 13:32 2 tab ONCE ONE Administration Cephalexin HCl 500 mg 03/07/25 14:43 03/07/25 15:15 Cephalexin 500mg Capsule PO 03/07/25 14:44 500 mg ONCE ONE Administration Methylprednisolone Sodium Succinate 80 mg 03/07/25 13:32 03/07/25 14:00 Methylprednisolone Sod Succ 125mg Vial IV 03/07/25 13:33 80 mg ONCE ONE Administration Trimethoprim/Sulfamethoxazole 1 each 03/07/25 14:43 03/07/25 15:14 Sulfa/Trimethoprim 1 Tablet PO 03/07/25 14:44 1 each ONCE ONE Administration ORDERS Category Date Time Status Knee XR right 3 views [XR knee RT 3V] Stat Exams 03/07/25 13:29 Completed POCUS Point of Care (ER Only) Stat Exams 03/07/25 14:31 Taken CBC w/Auto Diff [Complete Blood Count Auto Diff] Stat Lab 03/07/25 13:55 Completed CRP [C-Reactive Protein] Stat Lab 03/07/25 13:55 Completed Comprehensive Metabolic Panel Stat Lab 03/07/25 13:55 Completed Erythrocyte Sedimentation Rate Stat Lab 03/07/25 13:55 Completed HIV Combo Stat Lab 03/07/25 13:55 Completed Hepatitis C Ab Qual. W/ RFX Stat Lab 03/07/25 13:55 Completed Lactic Acid Stat Lab 03/07/25 13:55 Completed Wound Culture and Gram Stain Stat Micro 03/07/25 15:10 Received Medical Decision Narrative: This is Dr. Hickman or from the [facility] patient has a history of septic bursitis that was initially treated with dalbavancin 1 year ago and this is recurrent. I did a bedside ultrasound please see limited soft tissue ultrasound and procedure note which demonstrated a significant fluid collection in addition to surrounding cellulitis clinically. I discussed the case with Dr. Palencia given the fact that this is recurrent and the possible need for bursectomy and we discussed that right now he is not systemically ill and that this is not as severe as it was in the past we will try oral antibiotics and I did an incision and drainage placed a vessel loop he will follow-up closely with Dr. Palencia for further discussion of possible bursectomy and/or the need for IV antibiotics etc. if he is not improving. With regards to the initial concern for a septic joint the patient has his leg in a fixed extended position and has no pain or effusion noted on clinical exam he would most likely have his leg in a fixed flexed position with maximal joint capsule diameter if this were a septic joint. Any clearly has a prepatellar fluid collection on bedside ultrasound therefore the working diagnosis is a prepatellar septic bursitis. Procedures <Lico Hickman MD - Last Filed: 03/07/25 15:30> Abscess I/D Site: other (Prepatellar septic bursitis) Side (if applicable): right Local Anesthetic: lidocaine 1% and with epi Amount of anesthesia used (mL): 5 Technique: incised with #11 blade Amount of fluid expressed (mL): 20 (Purulent material) Irrigation: No Packing used?: plain (Vessel loop placed) Complications: other (This was ultrasound-guided and direct visualization also the fluid collection was confirmed to be absent on serial ultrasound imaging) Miscellaneous Procedure Procedure Performed: Limited soft tissue ultrasound Indication: Knee pain and swelling Identified structures: Location: Right knee Findings: Prepatellar soft tissue fluid collection 6 x 6 x 1 cm purulent debris noted within the fluid collection with surrounding cobblestoning and cellulitis Impression: Localize drainable fluid collection most likely representing a septic bursitis and surrounding cellulitis Images were saved to permanent archive The study was technically adequate Soft Tissue CPT Codes: CPT Neck: 86960-73 CPT Upper extremity: 82636-70 CPT Axilla: 00307-23 CPT Chest wall: 09335-60 CPT Breast: 21744-68-FT/LT (complete), 05110-90-PD/LT (limited), CPT Upper Back: 31478-55 CPT Lower Back: 89223-83 CPT Abdominal Wall: 71942-78 CPT Pelvic Wall: 69611-19 CPT Lower Extremity: 42407-48 CPT Other Soft Tissue: 22966-13 This study was performed by me, and I personally interpreted all images/videos. Based on my clinical judgement, these images were adequate and did not necessitate further imaging. Critical Care <Shannan Benton (ED), SCREEN PRINTING PASTER - Last Filed: 03/07/25 17:32> Critical Care Time Critical Care Time: No
[2025-03-07 14:18] LABS: Albumin Level 4.9 g/dl (3.5-5.0); Chloride 106 mmol/L (98-107); Potassium 3.6 mmoL/L (3.5-5.1); Sodium 143 mmol/L (136-145)
[2025-03-07 14:20] LABS: Blood Urea Nitrogen 19 mg/dl (9-20)
[2025-03-07 14:21] LABS: Alanine Aminotransferase 42 U/L (12-78); Albumin/Globulin Ratio 1.8 (1.1-1.8); Alkaline Phosphatase 82 U/L (38-126); Anion Gap 12.6 mEq/L (5-15); Aspartate Amino Transferase 36 U/L (17-59); Carbon Dioxide 28 mmol/L (22.0-30.0); Creatinine Clearance Estimated 105 mL/min (50-200); Estimated Glomerular Filt Rate 64 ml/min (>60); GFR (African American) 77 ML/MIN (>60); Globulin 2.8 g/dL (1.3-3.2); Glucose 77 mg/dl (74-100); Total Protein,Serum 7.7 g/dl (6.3-8.2)
[2025-03-07 14:22] LABS: Lactic Acid 1.4 mmol/L (0.7-2.1)
[2025-03-07 14:26] LABS: C-Reactive Protein 7.6 mg/L (0-4)
[2025-03-07 14:53] LABS: Erythrocyte Sedimentation Rate 3 mm/hr (0-15)
[2025-03-07 15:12] LABS: HIV Combo NEGATIVE (Negative)
[2025-03-07] MEDS: SULFA/TRIMETHOPRIM 1 TABLET 1 EACH PO (15:14)
[2025-03-07] MEDS: cephALEXin 500MG CAPSULE 500 MG PO (15:15)
[2025-03-07 15:20] LABS: Hepatitis C Ab Qual. W/ RFX NEGATIVE (Negative)
== END 2025-03-07 15:43 | disposition home or self-care (01) ==
PROVIDERS: Nurse Practitioner; Emergency Provider Student in an Organized Health Care Education/Training Program; PCP Nurse Practitioner Family
DX: M25.561 Pain in right knee (principal); M71.161 Other infective bursitis, right knee; Z11.59 Encounter for screening for other viral diseases; Z11.4 Encounter for screening for human immunodeficiency virus [HIV]
CPT/HCPCS: 10061; 73562; 80053; 83605; 85025; 85651; 86140; 86803; 87070; 87205; 87389; 99284; J2919

== ENCOUNTER 2025-03-18 08:25 | Outpatient (CLI) | payer BC, SELFPAY ==
[2025-03-18 13:24] LABS: Microscopic, Urine URINE MICROSCOPIC (MICROSCOPIC)
[2025-03-18 15:02] LABS: Appearance,Urine CLEAR (Clear); Bilirubin,Urine Negative (Negative); Blood, Urine Negative (Negative); Color,Urine YELLOW (Yellow); Glucose,Urine (UA) Negative (Negative); Ketones,Urine Negative (Negative); Leukocyte Esterase,Urine Negative (Negative); Nitrate,Urine Negative (Negative); Protein,Urine Negative (Negative); Specific Gravity, Urine 1.025 (1.005-1.030); Urobilinogen,Urine 0.2 EU/dl (0.2)
[2025-03-18 15:05] LABS: Chol/HDL Ratio 5.1 (1-3.5); Cholesterol 175 mg/dl (140-200); HDL Cholesterol 34 mg/dl (40-60); Triglycerides 165 mg/dl (30-150); Uric Acid 7.2 mg/dl (3.5-8.5); VLDL Cholesterol 33 mg/dL (0-40)
[2025-03-18 15:55] LABS: Bacteria,Urine 1+ /lpf; Squamous Epithelial Cell,Urine Occasional #/hpf (0-5)
== END 2025-03-18 23:59 | disposition home or self-care (01) ==
LOC: LAB.DROPOF 03-19 11:21
PROVIDERS: PCP Nurse Practitioner Family; Visit Provider Nurse Practitioner Family
DX: I10 Essential (primary) hypertension (principal); M10.9 Gout, unspecified; E78.5 Hyperlipidemia, unspecified
CPT/HCPCS: 80061; 81001; 84156; 84550; 87086